=== PATIENT | female | born 1975 | race Caucasian/White ===

== ENCOUNTER → 2017-06-18 17:00 | Outpatient (CLI) | payer BC, SELFPAY ==
--- NOTE | 2017-06-18 17:02 | BI_ITS ---
MAMMOGRAPHY - BILATERAL SCREENING REASON FOR EXAM: Female, 42 years old. Routine annual screening examination. PERTINENT HISTORY: Non-contributory. TECHNIQUE: Digital bilateral breast jyoti (3D mammographic acquisition) in the CC and MLO projections. 2-D mediolateral oblique (MLO) and craniocaudad (CC) views of both breasts were obtained. CAD: Full Field Digital Mammography with Computer Added Detection was performed. COMPARISON: Comparison is made with prior outside examination dated April 01, 2015 and October 04, 2014. FINDINGS: Breast Composition: There are scattered areas of fibroglandular density. There are no dominant masses or suspicious calcifications. No other significant abnormalities are identified. There has been no significant change since the prior study. BI/SCREENING MAMM (CAD), BILAT IMPRESSION: Stable bilateral screening mammogram. Yearly follow-up mammogram recommended. (A) ASSESSMENT CATEGORY: BIRADS Category 1: Negative. A letter regarding these results will be sent to the patient by the facility within 30 days. Approximately 10% of breast cancers are not detected by mammography. A normal mammogram should not delay biopsy of a clinically suspicious abnormality. [id number] Electronically Signed: Andrew Phillips MD at 12:44 EDT Tel [phone], Service support ,
== END ==
PROVIDERS: Family Provider Family Medicine; PCP Family Medicine; Visit Provider Family Medicine
DX: Z12.31 Encounter for screening mammogram for malignant neoplasm of breast (principal)
CPT/HCPCS: 77063; 77067

== ENCOUNTER → 2017-12-07 07:57 | Outpatient (CLI) | payer BC, SELFPAY ==
[2017-12-07 08:20] LABS: Red Blood Cells-Urine 0 SEEN /hpf (0-5)
[2017-12-07 09:23] LABS: Absolute Lymphocyte Count 2.92 X10^3/ul (0.83-4.51); Absolute Neutrophil Count 4.6 X10^3/uL (2.0-7.7); Basophil# 0.02 X10^3/uL; Basophil% 0.2 % (0-1); Eosinophil# 0.25 X10^3/uL; Hemoglobin 13.9 g/dl (12.0-15.0); Lymphocyte # 2.92 X10^3/ul (4.0); Mean Corp Hgb Conc 34.8 g/gl (32-36); Mean Corpuscular Hgb 30.6 pg (27.0-32.0); Mean Corpuscular Volume 88.1 fL (81-99); Mean Platelet Vol. 10.2 fl (6.2-12.0); Monocyte# 0.55 X10^3/uL; Monocyte% 6.6 % (0-10); Neutrophil # 4.58 X10^3/uL (2.7-7.7); Neutrophil % 54.8 % (47-70); Platelet Count 228 K/mm3 (150-450); RBC Distribution Width CV 12.4 % (11.6-14.6); RBC Distribution Width SD 39.6 fl (35.1-43.9); Red Blood Count 4.54 M/mm3 (4.2-5.4); White Blood Count 8.4 K/mm3 (4.4-11.0)
[2017-12-07 09:25] LABS: POSITIVE COUNT NO; POSITIVE DIFFERENTIAL NO; POSITIVE MORPHOLOGY NO
[2017-12-07 09:32] LABS: Color, Urine Yellow (Yellow); Glucose, Dipstick 100 mg/dl (Normal); Ketone-Dipstick 5 mg/dl (Negative); Leukocyte Esterase-Dipstick 100 /ul (Negative); Nitrite-Dipstick Negative (Negative); Occult Blood-Urine 10 /ul (Negative); Protein-Dipstick 15 mg/dl (Negative); Specific Gravity, Urine 1.025 (1.002-1.030); Urine Bilirubin Dipstick Negative (Negative); Urine Clarity Sl. Cloudy (Clear); Urine Urobilinogen Normal (Normal)
[2017-12-07 09:37] LABS: Microalbumin,Random Urine 37.9 mg/L (NO RANGE EST.); Microalbumin:Creatinine Ratio 18.3 mg/g CRE (<30 mg/g CRE)
[2017-12-07 09:45] LABS: AST(SGOT) 8 U/L (15-37); Alanine Aminotransfer ALT/SGPT 26 U/L (13-56); Albumin, Serum 3.4 g/dL (3.2-5.0); Alkaline Phosphatase 72 U/L (45-117); Anion Gap 10 (5-15); BUN 15 mg/dL (7-18); BUN/Creat Ratio 25.2 RATIO (10-20); Calcium,Total 8.2 mg/dL (8.5-10.1); Chloride 108 mmol/L (98-107); Cholesterol 153 mg/dL (200); EST Glomerular Filtration Rate 117 mL/min (>60); Est Glom Filt Rate - Afr Amer 141 mL/min (>60); Globulin 3.3 g/dL (2.2-4.2); Glucose 186 mg/dL (74-106); High Density Lipoprotein 42 mg/dL; Potassium 3.6 mmol/L (3.5-5.1); Protein, Total 6.7 g/dL (6.4-8.2); Sodium Level 141 mmol/L (136-145); T4 Free Direct 0.84 ng/dL (0.76-1.46); Triglycerides 128 mg/dL; Very Low Density Lipoprotein 26 mg/dL (5-40)
[2017-12-07 09:48] LABS: Bacteria RARE /hpf (None Seen); Mucous, Urine 2+ /hpf (<or=2+); Squamous Epithelial Cells - UA 0-5 SEEN /hpf (5-10); White Blood Cells 0-5 SEEN /hpf (0-5)
[2017-12-07 09:53] LABS: Hemoglobin A1c 7.6 % (4.2-6.3)
== END ==
PROVIDERS: Family Provider Family Medicine; PCP Family Medicine; Visit Provider Family Medicine
DX: I10 Essential (primary) hypertension (principal); E03.9 Hypothyroidism, unspecified; E11.9 Type 2 diabetes mellitus without complications
CPT/HCPCS: 36415; 80053; 80061; 81001; 82043; 82570; 83036; 84439; 84443; 85025

== ENCOUNTER → 2017-12-23 10:08 | Outpatient (CLI) | payer BC, SELFPAY ==
--- NOTE | 2017-12-23 10:31 | US_ITS ---
STUDY: THYROID ULTRASOUND REASON FOR EXAM: Female, 42 years old. History of iodine-131 treatment. History of goiter and Graves' disease. Partial thyroidectomy 1998. TECHNIQUE: Ultrasound evaluation of the thyroid was performed with real-time and static swanson-scale imaging. COMPARISON: MRI angiogram neck 05/09/2013. FINDINGS: RIGHT LOBE: 2.6 x 1.1 x 0.9 cm. Generalized heterogeneous echotexture. There is a vascular 9 x 7 x 7 mm hypoechoic heterogeneous nodule with sharply circumscribed margins and oval shape. LEFT LOBE: 5.4 x 2.4 x 2.5 cm. Heterogeneous generalized echotexture. Mid polar nodules are present, solid, smoothly circumscribed margins, hypoechoic, with Perinodular vascular flow. The nodules measure 18 x 17 x 13 mm, 18 x 16 x 12 mm, and 8 x 8 x 5 mm respectfully. ISTHMUS: The isthmus measures 3 mm, normal echotexture . US/Thyroid IMPRESSION: Bilateral thyroid nodules. Based on the [place] [employer] guidelines, the largest nodules on the left fall into the intermediate suspicion pattern. Biopsy is recommended if over 1 cm in greatest dimension. Therefore, ultrasound guided FNA biopsy of the dominant nodules on the left is recommended. This depends upon the patient's prior history. Prior imaging is not available for direct comparison of the gland at this time. If prior imaging becomes available and assessment can be made as to the relative stability of the gland. Electronically Signed: Zach Wright, at 17:13 EDT Tel , Service support ,
[2017-12-25 07:07] LABS: Thyroid Stim Immunoglob <0.10 IU/L (0.00-0.55)
[2017-12-25 07:29] LABS: Thyroid Peroxidase AB 10 IU/mL (0-34)
== END ==
PROVIDERS: Family Provider Family Medicine; PCP Family Medicine; Referring Provider Family Medicine; Visit Provider Family Medicine
DX: E05.00 Thyrotoxicosis with diffuse goiter without thyrotoxic crisis or storm (principal)
CPT/HCPCS: 36415; 76536; 84445; 86376

== ENCOUNTER → 2018-01-13 15:30 | Outpatient (CLI) | payer BC, SELFPAY ==
--- NOTE | 2018-01-13 | ASPS_PTH ---
PATIENT: DEDRICK VÁZQUEZ [facility] U#:[id number] AGE/SX: 49/F ROOM: RE01/13/[address]: Dr. Navin Champagne MD : 1975 BED: DIS: SPEC #: [id number] RECD: 01/14/18 10:54 STATUS: KENA JUDIT #: [id number] MIKEL: 01/13/18 00:[address]: Navin Champagne DEPT: CYTOLOGY RECD BY: Josh Montesinos ENTERED: 01/14/18 10:55 SP TYPE: ASPIRATION OTHR DR: Dr. Jose Rowley MD Tissues: A - Thyroid gland, NOS B - Thyroid gland, NOS Procedures: Pap Stain (control) Special Stain Group II Cytology Other HEADER OPERATION: Left thyroid FNA x2 PRE-OP DIAGNOSIS: Multiple thyroid nodules E04.2 TISSUE SUBMITTED: A - Fine needle aspiration left thyroid inferior lobe (6 slides), B - Fine needle aspiration left thyroid superior lobe (6 slides) DIAGNOSIS CYTOLOGY A. Left thyroid inferior lobe, FNA (smears): Consistent with benign follicular nodule. Adequate for evaluation. B. Left thyroid superior lobe, FNA (smears): Consistent with benign follicular nodule. Adequate for evaluation. SJ:katja 01/15/18 COMMENT Correlation with clinical, radiologic findings and appropriate follow up are necessary. CYTOLOGY STUDY Slides are reviewed. CYTOLOGY GROSS A - Received are six smears labeled with the patient's name and designated per the requisition as fine needle aspiration left thyroid inferior lobe. Submitted for staining. B - Received are six smears labeled with the patient's name and designated per the requisition as fine needle aspiration left thyroid superior lobe. Submitted for staining. 01/14/18 TC:5 CPT: 01340 x2
== END ==
PROVIDERS: Family Provider Family Medicine; PCP Family Medicine; Referring Provider Surgery; Visit Provider Surgery
DX: E04.2 Nontoxic multinodular goiter (principal)
CPT/HCPCS: 88161; 88313

== ENCOUNTER 2018-03-06 16:49 | Outpatient (RCR) | payer BC, SELFPAY | END 2018-03-17 23:59 | LOC: DC 16:49 | PROVIDERS: Family Provider Family Medicine; PCP Family Medicine; Visit Provider Family Medicine | DX: E11.9 Type 2 diabetes mellitus without complications (principal); Z71.3 Dietary counseling and surveillance ==

== ENCOUNTER 2018-05-01 16:58 | Outpatient (RCR) | payer BC, SELFPAY ==
[2018-01-06 10:43] VITALS: BMI 30.8
== END 2018-05-01 23:59 ==
LOC: DC 16:58
PROVIDERS: Family Provider Family Medicine; PCP Family Medicine; Visit Provider Family Medicine
DX: E11.9 Type 2 diabetes mellitus without complications (principal); Z71.3 Dietary counseling and surveillance
CPT/HCPCS: G0108

== ENCOUNTER → 2018-11-15 | Outpatient (CLI) | payer BC, SELFPAY ==
[2018-07-30 17:53] VITALS: BMI 30.8
[2018-11-15 09:42] LABS: Anion Gap 8 (5-15); BUN 13 mg/dL (7-18); BUN/Creat Ratio 19.3 RATIO (10-20); Calcium,Total 8.3 mg/dL (8.5-10.1); Chloride 109 mmol/L (98-107); Creatinine, Serum 0.68 mg/dL (0.55-1.02); EST Glomerular Filtration Rate 101 mL/min (>60); Est Glom Filt Rate - Afr Amer 122 mL/min (>60); Glucose 168 mg/dL (74-106); Potassium 3.5 mmol/L (3.5-5.1); Sodium Level 141 mmol/L (136-145)
[2018-11-15 09:43] LABS: Microalbumin,Random Urine 94.4 mg/L (NO RANGE EST.); Microalbumin:Creatinine Ratio 60.1 mg/g CRE (<30 mg/g CRE)
[2018-11-15 09:50] LABS: Hemoglobin A1c 8.4 % (4.2-6.3)
== END | disposition home or self-care (01) ==
LOC: LAB 08:07
PROVIDERS: Family Provider Internal Medicine; PCP Internal Medicine; Referring Provider Internal Medicine; Visit Provider Internal Medicine
DX: E11.9 Type 2 diabetes mellitus without complications (principal)
CPT/HCPCS: 36415; 80048; 82043; 82570; 83036

== ENCOUNTER 2018-11-22 17:16 | Emergency (ER) | payer BC, SELFPAY ==
[2018-11-20 18:11] VITALS: BMI 30.8
[2018-11-22 17:17] VITALS: BP 190/130; PULSE 108; RESP 18; TEMP 36.7; O2SAT 98; BMI 31.8
[2018-11-22 17:20] VITALS: BP 190/130; PULSE 102
--- NOTE | 2018-11-22 17:23 | RAD_ITS ---
STUDY: X-RAY CHEST REASON FOR EXAM: Female, 43 years old. Chest pain, hypertension TECHNIQUE: AP COMPARISON: 01/12/2016 FINDINGS: The lungs are clear and expanded. There is no demonstrated pleural abnormality. Normal size heart. Normal mediastinum and aminata. Normal visualized pulmonary arteries. Normal visualized aortic arch and descending thoracic aorta. Normal visualized thoracic spine. Normal visualized ribs, clavicles, and shoulders. There is no demonstrated abnormality of the visualized soft tissue structures of the upper abdomen. RAD/Chest 1 View (Portable) IMPRESSION: Stable, nonacute portable x-ray examination of the chest. Electronically Signed: Danny Iverson MD (Brooks) at 17:36 EDT , Service support ,
--- NOTE | 2018-11-22 17:23 | EKG12_ITS ---
Test Reason : CP Blood Pressure : / mmHG Vent. Rate : 108 BPM Atrial Rate : 108 BPM P-R Int : 174 ms QRS Dur : 086 ms QT Int : 360 ms P-R-T Axes : 055 -08 031 degrees QTc Int : 482 ms Sinus tachycardia Cannot rule out Inferior infarct , age undetermined Abnormal ECG Confirmed by KINGSTON BHATTI ([id number]), image editor GUILLERMO JOSEPH ([id number]) on 12/01/2018 2:33:26 PM Referred By: RICHARD Confirmed By:KINGSTON BHATTI
[2018-11-22 17:31] VITALS: O2SAT 97
--- NOTE | 2018-11-22 17:33 | ED.VIS.GEN ---
History of Present Illness Chief Complaint: Chest Pain Informant: Patient Onset: Yesterday Current Severity: Mild Narrative: The patient presents with multiple complaints including cough for over a month since her blood pressures been elevated for many many months, and intermittent sharp chest pain for today. She is had no fever the cough is dry nonproductive, she is had her blood pressure medications altered by her outpatient providers multiple times she is taking one medicine she is not sure what the name of it is, she is eating and drinking well she has no history of NH PE or DVT, she has no history of exertional chest pain NH. She indicates chest pain simply comes and goes and is not associated with exertion she smokes less than half packs a day she does not recall having family history for CAD she is currently resting comfortably no distress her blood pressures noted to be 210/120 and she indicates she has been taking her blood pressure medications Past Medical History - Allergies and Home Meds Allergies/Adverse Reactions: Allergies terbutaline sulfate [From Brethine] Allergy (Verified 11/20/18 18:06) Other HEART RACE metoclopramide HCl [From Reglan] Adverse Reaction (Verified 11/20/18 18:06) Other I DONT SLEEP Primary Care Physician: Kanwal Urena MD [Primary Care Provider] - Past Medical History: - Surgical History: hysterectomy, - - Tubal ligation, left knee surgery. Smoking Status: Light Smoker (<10/day) Review of Systems ROS: - Hypertension General: Denies: Chills, Fever, Sweats Eyes: Denies: Visual changes - bilaterally, Diplopia ENT: Denies: Rhinorrhea, Sore throat Cardiovascular: Reports: Chest pain. Denies: Palpitations Respiratory: Reports: Cough. Denies: Dyspnea, Dyspnea on exertion Gastrointestinal: Denies: Abdominal pain, Nausea, Vomiting, Diarrhea, Melena, Hematochezia Genitourinary: Denies: Dysuria, Hematuria, Frequency Musculoskeletal: Denies: Back pain, Extremity Pain Skin: Denies: Rash, Wounds Neurological: Denies: Headache, Weakness, Numbness Physical Exam Vital Signs/Narrative: Vital Signs Temp Pulse Resp BP Pulse Ox 11/22/18 17:31 97 11/22/18 17:20 102 H 190/130 H 11/22/18 17:17 98.1 F 108 H 18 190/130 H 98 General: Well nourished, Well developed, No Acute Distress Head: Normocephalic, Atraumatic Eyes: Perrl, EOMI ENT: Moist mucous membranes, No rhinorrhea Neck: Supple, Nontender Cardiovascular: Regular rate, Regular rhythm, No murmurs Respiratory: No distress, CTA bilaterally, Chest nontender Abdomen: Soft, Nontender, Nondistended, Normal bowel sounds Back: Nontender, Normal Inspection Extremities: Nontender, No edema Skin: Normal color, No rash Neurological: Alert, Oriented x3, Cranial nerves II-XII grossly intact, Normal Strength, Normal Sensation Psychological: Normal affect, Normal Mood Diagnostic/Tx/Re-eval - Medical Decision Making The differential is rather extensive the patient's EKG shows a sinus rhythm nothing acute rate 100 intervals unremarkable, on reevaluation she is in no distress we are going to treat with clonidine 0.3 mg p.o. obtain screening labs she indicates she is never had angina and NH or PE she cannot explain why her blood pressure remains high despite having her medications altered and modified by her outpatient providers nothing has been different in her life recently screening labs will reevaluate Patient screening labs are all generally unremarkable as is her chest x-ray see those reports, and reevaluation she is resting company the bed her blood pressure is now 150 over about 80 we discussed inpatient versus outpatient management she indicates she does not wish to be admitted she wants to go home she understands take aspirin at least 2 baby aspirin every day follow-up with your outpatient providers for further management of the chest pain and her hypertension and return for change in symptoms Home stable plan to admission Impression Final Intermittent sharp chest pain resolved labile hypertension ED Disposition - Plan for ED Patient: Diagnosis: Hypertension, Chest pain Instructions: CHEST PAIN, Uncertain Cause Referrals: Kanwal Urena MD [Primary Care Provider] -
[2018-11-22 17:34] LABS: Absolute Lymphocyte Count 3.59 X10^3/uL (0.83-4.51); Absolute Neutrophil Count 6.8 X10^3/uL (2.0-7.7); Basophil# 0.03 X10^3/uL; Basophil% 0.3 % (0-1); Eosinophil# 0.26 X10^3/uL; Eosinophils% 2.2 % (0-5); Hematocrit 44.9 % (37-47); Hemoglobin 16.1 g/dL (12.0-15.0); Lymphocyte # 3.59 X10^3/ul (4.0); Lymphocyte % 31.1 % (19-41); Mean Corp Hgb Conc 35.9 g/dL (32-36); Mean Corpuscular Hgb 31.2 pg (27.0-32.0); Mean Platelet Vol. 9.9 fl (6.2-12.0); Monocyte# 0.83 X10^3/uL; Monocyte% 7.2 % (0-10); NRBC Flagged by Analyzer 0 % (0-5); Neutrophil % 58.8 % (47-70); Platelet Count 269 K/mm3 (150-450); RBC Distribution Width CV 11.7 % (11.6-14.6); RBC Distribution Width SD 37.5 fl (35.1-43.9); Red Blood Count 5.16 M/mm3 (4.2-5.4); White Blood Count 11.6 K/mm3 (4.4-11.0)
[2018-11-22] MEDS: Clonidine HCl 0.1 MG, Clonidine HCl 0.2 MG 0.3 MG PO (17:45)
[2018-11-22 17:48] LABS: International Normalized Ratio 0.9
[2018-11-22 17:50] LABS: Anion Gap 11 (5-15); BUN 15 mg/dL (7-18); BUN/Creat Ratio 17.1 RATIO (10-20); Calcium,Total 8.8 mg/dL (8.5-10.1); Chloride 107 mmol/L (98-107); Creatinine, Serum 0.88 mg/dL (0.55-1.02); EST Glomerular Filtration Rate 75 mL/min (>60); Est Glom Filt Rate - Afr Amer 90 mL/min (>60); Estimated Creatinine Clearance 73.41 ml/min; Glucose 299 mg/dL (74-106); Potassium 3.9 mmol/L (3.5-5.1); Sodium Level 140 mmol/L (136-145)
[2018-11-22 17:55] VITALS: BP 151/104; PULSE 102; RESP 18; O2SAT 94
[2018-11-22] MEDS: Acetaminophen 500 MG Tablet 1000 MG PO (17:55)
[2018-11-22] MEDS: Aspirin 325 MG Tablet PO (18:18)
[2018-11-22 18:19] VITALS: BP 154/100; PULSE 88; RESP 18; O2SAT 98
== END 2018-11-22 18:22 | disposition home or self-care (01) ==
LOC: ED 18:08
PROVIDERS: Emergency Provider Emergency Medicine; Family Provider Internal Medicine; PCP Internal Medicine
DX: R07.9 Chest pain, unspecified (principal); I10 Essential (primary) hypertension; R05 Cough; Z79.899 Other long term (current) drug therapy; F17.200 Nicotine dependence, unspecified, uncomplicated
CPT/HCPCS: 71045; 80048; 84484; 85025; 85610; 93005; 99284; A4216

== ENCOUNTER → 2019-01-02 07:24 | Outpatient (CLI) | payer BC, SELFPAY ==
[2018-07-30 17:53] VITALS: BMI 30.8
[2018-12-18 17:52] VITALS: BMI 31.8
--- NOTE | 2019-01-01 17:15 | BI_ITS ---
MAMMOGRAPHY - BILATERAL SCREENING REASON FOR EXAM: Female, 43 years old. Routine annual screening examination. PERTINENT HISTORY: Non-contributory. TECHNIQUE: Digital bilateral breast valeria (3D mammographic acquisition) in the CC and MLO projections. 2-D mediolateral oblique (MLO) and craniocaudad (CC) views of both breasts were obtained. CAD: Full Field Digital Mammography with Computer Added Detection was performed. COMPARISON: Comparison is made with prior study dated June 18, 2017. FINDINGS: Breast Composition: There are scattered areas of fibroglandular density. There are no dominant masses or suspicious calcifications. No other significant abnormalities are identified. There has been no significant change since the prior study. BI/SCREEN MAMM (CAD) W/VALERIA BILAT IMPRESSION: Stable bilateral screening mammogram. Yearly follow-up mammogram recommended. (A) ASSESSMENT CATEGORY: BIRADS Category 1: Negative. A letter regarding these results will be sent to the patient by the facility within 30 days. Approximately 10% of breast cancers are not detected by mammography. A normal mammogram should not delay biopsy of a clinically suspicious abnormality. [id number] Electronically Signed: Andrew Phillips, at 8:38 EDT , Service support ,
== END ==
PROVIDERS: Family Provider Internal Medicine; PCP Internal Medicine; Referring Provider Internal Medicine; Visit Provider Internal Medicine
DX: Z12.31 Encounter for screening mammogram for malignant neoplasm of breast (principal)
CPT/HCPCS: 77063; 77067

== ENCOUNTER 2019-03-01 12:11 | Emergency (ER) | payer BC, SELFPAY ==
[2019-01-14 17:52] VITALS: BMI 31.6
[2019-03-01 12:12] VITALS: BP 187/124; PULSE 74; RESP 15; TEMP 36.4; O2SAT 100; BMI 31.6
--- NOTE | 2019-03-01 12:32 | ED.DCSUM_ITS ---
History of Present Illness Chief Complaint: Constipation Informant: Patient - Abdominal Pain/Flank Pain Onset: Days - 5 Context: Gradual Onset Timing: Continuous Quality: Cramping, Sharp - x 2-3d Location: Diffuse - periumbilical Current Severity: Severe Maximum Severity: Severe Worsened by: Nothing Relieved by: Nothing - tried Miralax x 2 yesterday; no effect - Nausea/Vomiting/Emesis GI Symptom: Nausea. Negative for: Vomiting - Diarrhea/Melena/Hematochezia GI Symptom: Negative for: Melena, Hematochezia Associated Symptoms: Frequency. Negative for: Dysuria, Hematuria, Urgency Narrative: Started having issues with constipation, followed by abdominal discomfort and nausea. She feels like there is a hard ball of stool in her rectum that she ca nnot get out. She has had this before, she states she has irritable bowel syndrome that flip-flops between constipation and diarrhea, and has had a history of diverticulitis with 2 feet of colectomy as a result of diverticulitis, and states she is also developed diverticulitis after the surgery. She does not have a stoma of any type. States this feels more like constipation but the discomfort in her rectum and her abdomen are getting more severe and she cannot have bowel movements that she came to the ER. She is a diabetic. She last checked her blood sugars yesterday and they were over 300. She has been drinking fluids fairly well and urinating normally and actually more than usual. Prior similar symptoms: Yes - but not this bad - Past Medical History (1) Diverticulosis Status: Chronic (2) Chronic pain syndrome Status: Chronic (3) Fibromyalgia Status: Chronic (4) Hypertension Status: Chronic (5) Rheumatoid arthritis Status: Chronic (6) Type II diabetes mellitus Status: Chronic Past Medical History - Allergies and Home Meds Allergies/Adverse Reactions: Allergies terbutaline sulfate [From Brethine] Allergy (Verified 03/01/19 12:25) Other HEART RACE metoclopramide HCl [From Reglan] Adverse Reaction (Verified 03/01/19 12:25) Other I DONT SLEEP Primary Care Physician: Kanwal Urena MD [Primary Care Provider] - Surgical History: hysterectomy, - - Tubal ligation, left knee surgery. Lives: Spouse/ Significant Other Smoking Status: Light Smoker (<10/day) Review of Systems General: Denies: Chills, Fever, Malaise, Sweats Eyes: Denies: Visual changes - bilaterally, Diplopia ENT: Denies: Rhinorrhea, Sore throat Cardiovascular: Denies: Chest pain, Palpitations Respiratory: Denies: Dyspnea, Cough, Dyspnea on exertion Gastrointestinal: Reports: Abdominal pain, Nausea, Constipation. Denies: Vomiting, Diarrhea, Melena, Hematochezia Genitourinary: Reports: Frequency. Denies: Dysuria, Hematuria Musculoskeletal: Denies: Neck pain, Back pain, Swelling, Extremity Pain Skin: Denies: Rash, Wounds Neurological: Denies: Headache, Weakness, Numbness Physical Exam Vital Signs/Narrative: Vital Signs Temp Pulse Resp BP Pulse Ox 03/01/19 12:12 97.6 F L 74 15 187/124 H 100 Inital Vital Signs reviewed: Yes General: Well nourished, Well developed, No Acute Distress Head: Normocephalic, Atraumatic Eyes: Perrl, EOMI ENT: Moist mucous membranes, No rhinorrhea Neck: Supple, Nontender Cardiovascular: Regular rate, Regular rhythm, No murmurs Respiratory: No distress, CTA bilaterally, Chest nontender Abdomen: Soft, Nondistended, Normal bowel sounds, Tender - diffusely, worse throughout lower abd. Negative for: Guarding, Rebound tenderness Rectal: Tenderness - Uncomfortable, no focal mass, abscess, palpable or visible hemorrhoid. No gross blood. Stool barely palpable at fingertip. Back: Nontender, Normal Inspection. Negative for: CVA tenderness Extremities: Nontender, No edema Skin: Normal color, No rash, No Trauma Neurological: Alert, Oriented x3, Cranial nerves II-XII grossly intact, Normal Strength, Normal Sensation, Normal Gait Psychological: Normal affect, Normal Mood Diagnostic/Tx/Re-eval - Medical Decision Making See above for the rectal exam; manual disimpaction was not possible since I could barely feel the edge of hard stool after fully inserting my finger. Patient was amenable to a soapsuds enema. This really helped her have a bowel movement although she had a small amount, her abdominal discomfort let up and she felt much better. She states she would rather go home and be in her own bathroom which is understandable. We discussed the likelihood of her pain and nausea being related to constipation rather than diverticulitis or bowel obstruction, and she agrees this feels more related to constipation. She understands that if she continues to have bowel movements but her symptoms worsen that she should return to the ER for further studies and evaluation. We discussed using MiraLAX daily, and the difference between using MiraLAX for stool softening versus laxative effect. ED Disposition - Plan for ED Patient: Disposition: Home or Assisted Living Diagnosis: Constipation Instructions: CONSTIPATION (Adult) Referrals: Kanwal Urena MD [Primary Care Provider] - As Needed Additional Instructions: Miralax daily, 1 capful dissolved in any liquid, and make sure you are able to stay well hydrated throughout the day (discontinue it if you have vomiting for any reason).
[2019-03-01] MEDS: Ondansetron ODT 4 MG Tablet 8 MG PO (12:37)
[2019-03-01] MEDS: Dicyclomine 10 MG Capsule 20 MG PO (12:38)
== END 2019-03-01 13:31 | disposition home or self-care (01) ==
PROVIDERS: Emergency Provider Emergency Medicine; Family Provider Internal Medicine; PCP Internal Medicine
DX: K59.00 Constipation, unspecified (principal); K58.9 Irritable bowel syndrome, unspecified; K57.90 Diverticulosis of intestine, part unspecified, without perforation or abscess without bleeding; G89.4 Chronic pain syndrome; M79.7 Fibromyalgia; I10 Essential (primary) hypertension; M06.9 Rheumatoid arthritis, unspecified; E11.9 Type 2 diabetes mellitus without complications; Z87.19 Personal history of other diseases of the digestive system; Z90.49 Acquired absence of other specified parts of digestive tract; Z79.84 Long term (current) use of oral hypoglycemic drugs; Z79.899 Other long term (current) drug therapy; F17.200 Nicotine dependence, unspecified, uncomplicated
CPT/HCPCS: 99284

== ENCOUNTER → 2019-03-12 06:22 | Outpatient (CLI) | payer BC, SELFPAY ==
[2019-01-14 17:52] VITALS: BMI 31.6
[2019-03-01 12:12] VITALS: BMI 31.6
[2019-03-12 06:54] LABS: Color, Urine Yellow (Yellow); Glucose, Dipstick 250 mg/dl (Normal); Ketone-Dipstick 5 mg/dl (Negative); Leukocyte Esterase-Dipstick 25 /ul (Negative); Nitrite-Dipstick Negative (Negative); Occult Blood-Urine 10 /ul (Negative); Protein-Dipstick 30 mg/dl (Negative); Urine Bilirubin Dipstick 1 mg/dL (Negative); Urine Clarity Turbid (Clear); Urine Urobilinogen 1 mg/dl (Normal)
[2019-03-12 06:55] LABS: Bacteria 3+ /hpf (None Seen); Mucous, Urine 2+ /hpf (<or=2+); White Blood Cells 0-5 SEEN /hpf (0-5)
[2019-03-12 06:56] LABS: Amorphous Sediment 2+; Red Blood Cells-Urine 0-5 SEEN /hpf (0-5); Squamous Epithelial Cells - UA 10-25 SEEN /hpf (5-10)
[2019-03-12 07:08] LABS: T4 Free Direct 0.87 ng/dL (0.76-1.46); Thyroid Stim Hormone (TSH) 3.26 uIU/mL (0.358-3.74)
--- NOTE | 2019-03-12 18:58 | STRESSREP_ITS ---
Stress Test Report Date: 03/12/2019 Procedure: Pharmacologic stress nuclear imaging study Indications: Abnormal EKG Consent: Per the patient Procedure: The patient underwent pharmacologic (Regadenoson) evaluation with a peak heart rate of 111 beats per minute (63 %predicted maximal heart rate) and a peak blood pressure of 180/90 mmHg. The baseline ECG demonstrated sinus bradycardia. EKG during lexiscan infusion revealed significant ischemic changes. EKG post infusion revealed no significant ischemic change [There were no cardiac dysrhythmias pretest, during pharmacologic infusion, or recovery]. Patient had chest pressure with Lexiscan infusion and in the recovery. The examination was discontinued secondary to completion of protocol. Impression: 1. Lexiscan stress test test is negative for Lexiscan infusion induced EKG changes of ischemia. 2. Lexiscan stress test test is positive for Lexiscan infusion induced chest pressure which could be a nonspecific response. 3. Results of the nuclear portion of the test is as below Myocardial perfusion imaging study: Technique: The patient was injected with 14.1 millicuries of technetium 99m Cardiolite and subsequently rest SPECT Cardiolite nuclear imaging was obtained in the horizontal long, vertical long, and short axis views. The patient underwent pharmacologic (Regadenoson) evaluation. Please see above for details. The patient was injected with 43 millicuries of technetium 99m Cardiolite and subsequently stress SPECT Cardiolite nuclear imaging was obtained in the horizontal long, vertical long, and short axis views. A gated Cardiolite study at peak stress was obtained. Interpretation: Rest and stress SPECT Cardiolite nuclear imaging status post realignment, normalization, and attenuation correction demonstrate mild decrease in the radioisotope uptake in the distal anterior wall on the stress images. There is normal uptake on the rest images. These findings are suggestive of mild anterior and apical ischemia. Gated images reveal no significant regional wall motion abnormalities. The reported LVEF is greater than 70 %. Impression: 1. There is possible mild anterior and apical ischemia. 2. Estimated ejection fraction is greater than 70%. This note was generated with [employer] software. It may contain incorrect words, spelling, and punctuation that were not noted in checking the note before signing.
[2019-03-20 13:13] LABS: Aldosterone, Serum 21.4 ng/dL (0.0-30.0); Renin, Plasma 0.581 ng/mL/hr (0.167-5.380)
== END ==
PROVIDERS: Family Provider Internal Medicine; PCP Internal Medicine; Referring Provider Internal Medicine; Visit Provider Internal Medicine
DX: I10 Essential (primary) hypertension (principal); R94.31 Abnormal electrocardiogram [ECG] [EKG]; R30.0 Dysuria
CPT/HCPCS: 36415; 78452; 81001; 82088; 84244; 84439; 84443; 87086; 87088; 93017; A9500; A4216; J2785

== ENCOUNTER → 2019-04-03 15:03 | Outpatient (CLI) | payer BC, SELFPAY ==
[2019-03-25 14:29] VITALS: BMI 31.4
--- NOTE | 2019-04-03 15:06 | ECHOD_ITS ---
Reason For Study: Chest Pain Procedure This was a 2D Doppler, Color Flow transthoracic echocardiogram. Contrast injection was performed. Exam performed in department. Left Ventricle Normal left ventricle. Left ventricular systolic function is hyperdynamic. The estimated ejection fraction is 60-65 %. Stage 1 diastolic dysfunction. No regional wall motion abnormalities noted. Right Ventricle Normal right ventricle. Normal systolic function. Atria Normal left atrium. Mitral Valve The mitral valve is structurally normal. No prolapse or stenosis seen. No mitral valve insufficiency. Tricuspid Valve Normal tricuspid valve. Unable to estimate RV systolic pressure due to inadequate jet, pulmonary artery pressure probably normal. Aortic Valve No aortic valve insufficiency. Pulmonic Valve The pulmonic valve is not well visualized. Medication 22 gauge I.V. with prn adaptor inserted into right arm. Performed a rapid injection of agitated mix of 9 cc saline and 1cc air to assess for atrial septal defect. MMode/2D Measurements & Calculations LVIDd: 4.4 cm IVSd: 1.1 cm Ao root diam: 3.2 cm LVIDs: 2.7 cm LVPWd: 0.92 cm LA dimension: 4.2 cm RVDd: 3.7 cm FS: 38.3 % LAV(MOD-bp): 55.7 ml LA A4 area: 18.4 cm2 RA A4 area: 15.1 cm2 LAV(MOD-bp) Indexed: 28.8 ml/m2 LAV(MOD-sp2): 48.7 ml LAV(MOD-sp4): 58.3 ml Time Measurements MV dec time: 0.22 sec Doppler Measurements & Calculations MV E max gilmer: 100.3 cm/sec Lat Peak E' Gilmer: 8.5 cm/sec Med Peak E' Gilmer: 9.2 cm/sec MV A max gilmer: 108.9 cm/sec E/E' lat: 11.9 E/E' med: 10.9 MV E/A: 0.92 MV V2 max: 134.8 cm/sec MV P1/2t max gilmer: 118.5 cm/sec Ao V2 max: 152.2 cm/sec MV max P.3 mmHg MV P1/2t: 88.9 msec Ao max P.3 mmHg MV V2 mean: 77.7 cm/sec MV mean P.8 mmHg MV dec slope: 390.2 cm/sec2 MV V2 VTI: 38.0 cm MVA(P1/2t): 2.5 cm2 LV V1 max: 132.4 cm/sec PA V2 max: 114.6 cm/sec LV V1 max P.0 mmHg Interpretation Summary Normal left ventricle. Left ventricular systolic function is hyperdynamic. The estimated ejection fraction is 60-65 %. Normal left atrium. Stage 1 diastolic dysfunction. Unable to estimate RV systolic pressure due to inadequate jet, pulmonary artery pressure probably normal. No mitral valve insufficiency. No aortic valve insufficiency. Ordering Physician: Radha Ordoñez Referring Physician: Radha Ordoñez Performed By: Lucian Bailon RCS
== END ==
PROVIDERS: Family Provider Internal Medicine; PCP Internal Medicine; Referring Provider Specialist; Visit Provider Specialist
DX: R07.9 Chest pain, unspecified (principal)
CPT/HCPCS: 93306; A4216

== ENCOUNTER 2019-04-10 09:52 | Day surgery (SDC) | payer BC, SELFPAY ==
[2019-03-25 14:29] VITALS: BMI 31.4
[2019-03-25 17:16] LABS: Absolute Lymphocyte Count 3.29 X10^3/uL (0.83-4.51); Absolute Neutrophil Count 5.3 X10^3/uL (2.0-7.7); Basophil# 0.05 X10^3/uL; Basophil% 0.5 % (0-1); Eosinophil# 0.65 X10^3/uL; Eosinophils% 6.3 % (0-5); Hematocrit 42.3 % (37-47); Hemoglobin 14.7 g/dL (12.0-15.0); Lymphocyte # 3.29 X10^3/ul (4.0); Lymphocyte % 31.9 % (19-41); Mean Corp Hgb Conc 34.8 g/dL (32-36); Mean Corpuscular Hgb 30.6 pg (27.0-32.0); Mean Corpuscular Volume 88.1 fL (81-99); Mean Platelet Vol. 10.3 fl (6.2-12.0); Monocyte# 0.94 X10^3/uL; Monocyte% 9.1 % (0-10); NRBC Flagged by Analyzer 0 % (0-5); Neutrophil % 51.5 % (47-70); Platelet Count 345 K/mm3 (150-450); RBC Distribution Width CV 11.9 % (11.6-14.6); RBC Distribution Width SD 38.3 fl (35.1-43.9); White Blood Count 10.3 K/mm3 (4.4-11.0)
[2019-03-25 17:23] LABS: Anion Gap 7 (5-15); BUN 16 mg/dL (7-18); BUN/Creat Ratio 19.9 RATIO (10-20); Calcium,Total 9.3 mg/dL (8.5-10.1); Chloride 104 mmol/L (98-107); EST Glomerular Filtration Rate 82 mL/min (>60); Est Glom Filt Rate - Afr Amer 99 mL/min (>60); Glucose 224 mg/dL (74-106); Potassium 3.6 mmol/L (3.5-5.1); Sodium Level 137 mmol/L (136-145)
[2019-03-25 17:25] LABS: International Normalized Ratio 0.9; Partial Thromboplast Time 26.8 Seconds (24.1-36.2); Prothrombin Time (Protime)PT. 11.5 SECONDS (11.7-14.9)
[2019-04-09 07:01] VITALS: BMI 31.4
--- NOTE | 2019-04-10 16:43 | CL.D_ITS ---
Patient Name: DEDRICK VÁZQUEZ Study Date: 04/10/2019 Performing: Eliseo Ordoñez MD Ht: 65 inches 165 cm : 1975 Wt: 189.8 lbs 86 kg Age: 44 Gender: female BSA: 1.93 PROCEDURE(S) PERFORMED EX03-EXI/COR/LV CLINICAL PROFILE AND INDICATIONS Indications: Suspected CAD Heart Failure: None Stress/Imaging Stress Test w/SPECT MPI: Yes Result: Positive Intermediate RiskStress Test with SP ECT MPI: Positive Intermediate Risk CAD Presentations: Unstable angina. CONCLUSIONS No significant CAD. Preserved EF. No significant or MR RECOMMENDATIONS DESCRIPTION OF PROCEDURE The patient arrived to the procedure lab. The risks and benefits of the procedure as well as a full d escription of our services here and current unavailability of surgical backup were fully explained to the patient and/or their significant other prior to the catheterization. The Timeout was completed, verifying the correct patient and procedure. The patient's procedural site was prepped and draped in the usual fashion. Local anesthetic was given subcutaneously to right radial region with Lidocaine 2% . Using a modified Seldinger technique, arterial access was obtained via the right radial artery, a 6 Fr sheath was inserted. Left Coronary Artery selective angiography was performed in multiple views u sing a 5 Fr. JL3.5 catheter. Left Ventriculography was performed in S[place]IN projection using a 5 Fr. JR4. Right Coronary Artery selective angiography was then performed in multiple views using a 5 Fr. JR 4 catheter.The arterial sheath was pulled and a TR Band was applied for hemostasis - 11cc of air CORONARY ANGIOGRAPHY DOMINANCE: Right Dominant LEFT HEART ASSESSMENT Left Ventricular Ejection Fraction: by LV Gram 65 % Normal LV wall motion LEFT MAIN: Angiographically normal LEFT ANTERIOR DESCENDING ARTERY: Mild luminal irregularities CIRCUMFLEX ARTERY: Angiographically normal RIGHT CORONARY ARTERY: Angiographically normal VALVE FINDINGS: No Aortic Valve Stenosis No Mitral Insufficiency COMPLICATIONS No Complications PROCEDURE MEDICATIONS Fentanyl 50 mcg IV Versed 1 mg IV Oxygen: 2 L/min via nasal cannula Heparin given IA 04/10/2019 12:34:17 Verapamil 2.5mg, Ntg 100mcgs, 3000 units of Heparin given IA 04/10/2019 12:34:17 SUMMARY OF HEMODYNAMIC DATA Time AIR REST ECG 12:35:44 AO 115/86 (99) SA 12:36:11 LV 150/-11, 7 12:40:23 LV 148/-10, 7 12:40:30 LV 141/-10, 6 12:41:19 LVp 140/-7, 10 12:41:29 AOp 136/84 (105) 12:41:34 Signed By Eliseo Ordoñez MD On 04/10/2019 4:42:37 PM Eliseo Ordoñez MD
== END 2019-04-10 15:10 | disposition home or self-care (01) ==
PROVIDERS: Family Provider Internal Medicine; PCP Internal Medicine; Referring Provider Specialist; Visit Provider Specialist
DX: R94.39 Abnormal result of other cardiovascular function study (principal); R07.9 Chest pain, unspecified; I10 Essential (primary) hypertension; M79.7 Fibromyalgia; G47.30 Sleep apnea, unspecified; G89.4 Chronic pain syndrome; M19.90 Unspecified osteoarthritis, unspecified site; K57.90 Diverticulosis of intestine, part unspecified, without perforation or abscess without bleeding; K21.9 Gastro-esophageal reflux disease without esophagitis; K58.9 Irritable bowel syndrome, unspecified; M06.9 Rheumatoid arthritis, unspecified; L40.50 Arthropathic psoriasis, unspecified; E11.9 Type 2 diabetes mellitus without complications; Z87.01 Personal history of pneumonia (recurrent); Z87.442 Personal history of urinary calculi; Z79.84 Long term (current) use of oral hypoglycemic drugs; Z79.899 Other long term (current) drug therapy; Z87.891 Personal history of nicotine dependence
CPT/HCPCS: 36415; 80048; 85025; 85610; 85730; 93458; 99152; 99153; J7040; C1769; C1894; Q9967

== ENCOUNTER → 2019-10-03 08:17 | Outpatient (CLI) | payer BC, SELFPAY ==
[2019-07-29 18:15] VITALS: BMI 31.4
[2019-10-03 09:07] LABS: Hemoglobin A1c 9.5 % (3.8-5.6)
== END ==
PROVIDERS: PCP Internal Medicine; Referring Provider Internal Medicine; Visit Provider Internal Medicine
DX: E11.9 Type 2 diabetes mellitus without complications (principal)
CPT/HCPCS: 36415; 83036

== ENCOUNTER → 2019-12-14 | Outpatient (CLI) | payer BC, SELFPAY ==
[2019-12-14 16:18] VITALS: BMI 31.2
[2019-12-18 04:41] LABS: HPV APTIMA, High Risk Negative (Negative)
== END | disposition home or self-care (01) ==
LOC: LABSPEC 16:53
PROVIDERS: PCP Internal Medicine; Referring Provider Obstetrics & Gynecology; Visit Provider Obstetrics & Gynecology
DX: N89.8 Other specified noninflammatory disorders of vagina (principal); Z12.4 Encounter for screening for malignant neoplasm of cervix
CPT/HCPCS: 87070; 87205; 87624; 88175; G0145

== ENCOUNTER → 2019-12-21 13:16 | Outpatient (CLI) | payer BC, SELFPAY ==
[2019-10-07 18:16] VITALS: BMI 31.2
[2019-12-14 16:18] VITALS: BMI 31.2
--- NOTE | 2019-12-21 13:16 | BI_ITS ---
MAMMOGRAPHY - BILATERAL DIAGNOSTIC REASON FOR EXAM: Female, 44 years old. BILAT SEBACEOUS CYST FOR YEARS THAT HAVE BECOME PAINFUL-MARKED WITH TRIANGLE MARKERS, BIOL SCAR LT , LT TATTOO PERTINENT HISTORY: NO FM HX , BIOL SCAR LT , LT TATTOO TECHNIQUE: Digital bilateral breast jyoti (3D mammographic acquisition) in the CC and MLO projections. 2-D mediolateral oblique (MLO) and craniocaudad (CC) views of both breasts were obtained. CAD: Full Field Digital Mammography with Computer Added Detection was performed. COMPARISON: 01/01/2019 and 10/18/2017 FINDINGS: Breast Composition: The breasts are almost entirely fatty. There are no dominant masses or suspicious calcifications. No other significant abnormalities are identified. BI/DIAG MAMM W/CAD, BILAT IMPRESSION: Further ultrasonographic evaluation recommended, as described above. (I) ASSESSMENT CATEGORY: BIRADS Category 0: Incomplete. Need additional imaging evaluation. A letter regarding these results will be sent to the patient by the facility within 30 days. Approximately 10% of breast cancers are not detected by mammography. A normal mammogram should not delay biopsy of a clinically suspicious abnormality. Electronically Signed: Hermes Alvarez, at 15:43 EDT Tel , Service support ,
--- NOTE | 2019-12-21 13:16 | US_ITS ---
STUDY: ULTRASOUND BREAST - RIGHT REASON FOR EXAM: Female, 44 years old. palpable rt breast x 2mammo today TECHNIQUE: Axial and longitudinal images of the RIGHT breast were performed with a high resolution ultrasound transducer. # OF IMAGES: 33 COMPARISON: None. FINDINGS: RIGHT Breast: There is a lesion #1 in the lower inner quadrant. It is consistent with sebaceous cyst. The lesion measures 7 x 5 x 2 mm in size. Clock notation: 4 o''clock position. Distance from nipple: 1 cm. Posterior Enhancement: Yes. Posterior Shadowing: None. Margins: Sharp and smooth. Echogenicity: Hypoechoic. Compression effect on Shape: No change. There is a lesion #2 in the lower inner quadrant. It is consistent with sebaceous cyst. The lesion measures 6 x 7 x 2 mm in size. Clock notation: 6 o''clock position. Distance from nipple: 1 cm. Posterior Enhancement: Yes. Posterior Shadowing: None. Margins: Sharp and smooth. Echogenicity: Hypoechoic. Compression effect on Shape: No change. US/Breast Limited Unilateral IMPRESSION: 2 lesions are noted within the dermis are consistent with sebaceous cysts. ASSESSMENT CATEGORY: BIRADS Category 2: Benign. A letter regarding these results will be sent to the patient by the facility within 30 days. Electronically Signed: Hermes Alvarez, at 14:46 EDT Tel , Service support ,
== END ==
PROVIDERS: PCP Internal Medicine; Referring Provider Obstetrics & Gynecology; Visit Provider Obstetrics & Gynecology
DX: N60.01 Solitary cyst of right breast (principal)
CPT/HCPCS: 76642; 77062; 77066; G0279

== ENCOUNTER → 2020-01-16 08:09 | Outpatient (CLI) | payer BC, SELFPAY ==
[2020-01-16 08:42] LABS: Absolute Lymphocyte Count 2.98 X10^3/uL (0.83-4.51); Basophil# 0.04 X10^3/uL; Basophil% 0.4 % (0-1); Eosinophils% 3.4 % (0-5); Hematocrit 41.2 % (37-47); Hemoglobin 14.2 g/dL (12.0-15.0); Lymphocyte # 2.98 X10^3/ul (4.0); Lymphocyte % 33.3 % (19-41); Mean Corp Hgb Conc 34.5 g/dL (32-36); Mean Corpuscular Hgb 30.6 pg (27.0-32.0); Mean Corpuscular Volume 88.8 fL (81-99); Mean Platelet Vol. 10.1 fl (6.2-12.0); Monocyte# 0.57 X10^3/uL; Monocyte% 6.4 % (0-10); NRBC Flagged by Analyzer 0 % (0-5); Neutrophil # 5.02 X10^3/uL (2.7-7.7); Neutrophil % 56.1 % (47-70); Platelet Count 272 K/mm3 (150-450); RBC Distribution Width CV 11.6 % (11.6-14.6); RBC Distribution Width SD 36.9 fl (35.1-43.9); Red Blood Count 4.64 M/mm3 (4.2-5.4)
[2020-01-16 09:12] LABS: ALB/GLOB Ratio 1.1 RATIO (0.9-2.4); AST(SGOT) 8 U/L (15-37); Alanine Aminotransfer ALT/SGPT 23 U/L (13-56); Albumin, Serum 3.4 g/dL (3.2-5.0); Alkaline Phosphatase 71 U/L (45-117); Anion Gap 8 (5-15); BUN 14 mg/dL (7-18); BUN/Creat Ratio 19.9 RATIO (10-20); Chloride 108 mmol/L (98-107); Cholesterol 174 mg/dL (200); EST Glomerular Filtration Rate 96 mL/min (>60); Est Glom Filt Rate - Afr Amer 116 mL/min (>60); Globulin 3.2 g/dL (2.2-4.2); Glucose 191 mg/dL (74-106); High Density Lipoprotein 59 mg/dL; Potassium 3.7 mmol/L (3.5-5.1); Protein, Total 6.6 g/dL (6.4-8.2); Sodium Level 138 mmol/L (136-145); Triglycerides 110 mg/dL; Very Low Density Lipoprotein 22 mg/dL (5-40)
[2020-01-16 09:15] LABS: Microalbumin,Random Urine 40.8 mg/L (NO RANGE EST.); Microalbumin:Creatinine Ratio 20.5 mg/g CRE (<30 mg/g CRE)
[2020-01-16 09:20] LABS: Hemoglobin A1c 8.3 % (3.8-5.6)
== END ==
PROVIDERS: PCP Internal Medicine; Referring Provider Nurse Practitioner Family; Visit Provider Nurse Practitioner Family
DX: I10 Essential (primary) hypertension (principal); E11.9 Type 2 diabetes mellitus without complications
CPT/HCPCS: 36415; 80053; 80061; 82043; 82570; 83036; 85025

== ENCOUNTER 2020-09-22 17:56 | Emergency (ER) | payer BC, SELFPAY ==
[2020-09-07 18:21] VITALS: BMI 30.1
[2020-09-22 17:57] VITALS: BP 158/79; PULSE 86; RESP 15; TEMP 36; O2SAT 97; BMI 29.1
--- NOTE | 2020-09-22 18:07 | RAD_ITS ---
STUDY: X-RAY - PELVIS REASON FOR EXAM: Female, 45 years old. Fall TODAY. PAIN AND BRUISING TO LOWER BACK. TECHNIQUE: One view of the pelvis was obtained. COMPARISON: Lumbar spine x-ray dated February 13, 2016 FINDINGS: There is a non-specific bowel gas pattern. Normal visualized soft tissue structures. Stable right sacral stimulating catheter and adjacent subcutaneous stimulator device. No visualized acute fractures. Surgical suture material is present in the pelvis. Normal bilateral iliac wings, sacroiliac joints and visualized sacrum. Normal visualized bilateral superior and inferior pubic rami. There is narrowing with sclerosis of the pubic symphysis. Normal ischial tuberosities. Normal visualized right femoral head. Normal right acetabulum. Normal right hip joint. Normal visualized left femoral head. Normal left acetabulum. Normal left hip joint. RAD/Pelvis 1 or 2 Views IMPRESSION: No acute process Electronically Signed: Randy Yang MD at 20:02 EDT , Service support ,
--- NOTE | 2020-09-22 18:07 | RAD_ITS ---
STUDY: X-RAY - LUMBAR SPINE REASON FOR EXAM: Female, 45 years old. FALL TODAY. PAIN AND BRUISING TO LOWER BACK. TECHNIQUE: 3 view(s) of the lumbar spine were obtained. COMPARISON: Lumbar spine x-ray dated February 13, 2016 FINDINGS: Normal lumbar lordosis. There is no substantial scoliosis. There is a normal alignment of the vertebrae. Normal vertebral bodies. Minimal anterior endplate spurring is present at several levels. Normal disc space heights. No visualized compression deformities or fractures. Right sacral stimulating catheter reidentified. Surgical suture material is seen in the pelvis. The soft tissue structures are unremarkable. RAD/Lumbar Spine 2 or 3 Views IMPRESSION: Unremarkable x-ray examination of the lumbar spine. Electronically Signed: Randy Yang MD at 19:59 EDT , Service support ,
--- NOTE | 2020-09-22 18:08 | EDS_ITS ---
HPI History of Present Illness Chief Complaint: Fall Detail of Chief Complaint: Fall that occurred approximately 4:30 AM Informant: patient Narrative Narrative: Patient presents to the emergency department with a fall that occurred around 4:30 AM when she was letting her dogs out. Patient states that she slipped on the wet steps of the deck and injured her buttocks and left forearm. Patient has history of chronic back pain and has a spinal stimulator. She denies any pain rating into her legs. She denies weakness in extremities. Patient denies striking her head or loss of consciousness. She denies neck pain. She is not currently on any blood thinners. [facility] Medical History (Updated 09/22/20 @ 18:[address] Ishan Florence, ) Abnormal EKG Abnormal stress test Acute diverticulosis Anxiety and depression Arthritis Back problem Bone fracture Chronic pain syndrome Diverticulosis Essential hypertension Fibromyalgia Gastrointestinal problem GERD (gastroesophageal reflux disease) H/O emotional problems Hx of migraine headaches Irritable bowel syndrome Kidney stones Medical marijuana use Multiple thyroid nodules Numbness and tingling of right arm Numbness and tingling of right face Numbness and tingling of right leg Pneumonia Psoriatic arthropathy Rheumatoid arthritis Seasonal allergies Sleep apnea Thyroid disease Type 2 diabetes mellitus without complication Vitamin deficiency Home Medications CBD rUB TOPICAL 01/14/19 [History Last Taken Unknown] doxazosin 2 mg tablet 2 mg PO BID 90 Days #180 tab 01/12/20 [Rx Last Taken Unknown] losartan 100 mg tablet 100 mg PO DAILY #90 tab 01/12/20 [Rx Last Taken Unknown] metformin 500 mg tablet,extended release 24hr 1,000 mg PO QPM #180 tab 01/12/20 [Rx Last Taken Unknown] calcium carbonate 600 mg (1,500 mg)-vitamin D3 500 unit capsule cap PO 06/02/20 [History Last Taken Unknown] flash glucose scanning reader #1 each 06/02/20 [Rx Last Taken Unknown] flash glucose sensor #2 each 06/27/20 [Rx Last Taken Unknown] glimepiride 4 mg tablet 6 mg .ROUTE .COMPLEX #90 tab 09/07/20 [Rx Last Taken Unknown] hydrochlorothiazide 25 mg tablet 25 mg PO DAILY #90 tab 09/16/20 [Rx Last Taken Unknown] hydrocodone-acetaminophen 1 tab PO Q4H PRN PRN 2 Days #10 tablet 09/22/20 [Rx Last Taken Unknown] Allergy/AdvReac Type Severity Reaction Status Date / Time terbutaline sulfate Allergy Other Verified 09/22/20 17:58 [From Brethine] metoclopramide HCl AdvReac Other Verified 09/22/20 17:58 [From Reglan] Family History Mother Diabetes CVA (cerebral vascular accident) Thyroid disorder Cancer lung Hypertension Father CAD (coronary artery disease) Hypertension Cancer lung Surgical History (Updated 09/22/20 @ 18:03 by Robbin Rod) H/O colectomy H/O right knee surgery H/O thyroidectomy History of nasal surgery History of partial hysterectomy History of tonsillectomy and adenoidectomy History of tubal ligation [place] teeth extracted Social History Smoking Status: Current every day smoker tobacco type: cigarettes how long ago did patient quit smokin days ago alcohol intake: never substance use type: does not use caffeine: Yes Type: coffee Number of servings: 5 what type of physical activity do you participate in: none ROS ROS ED Constitutional Constitutional ED: Reports systems reviewed and no addt'l complaints, except as documented; Denies body ache(s), change in weight or chills Eyes Eyes: Denies acute decrease in peripheral vision, change in vision, double vision or loss of vision ENT ENT ED: Reports none; Denies ear pain, lip swelling, loss taste/smell, neck pain, otalgia or sore throat Cardiovascular Cardiovascular: Reports none; Denies abdominal pain, chest pain with activity, leg edema, lightheadedness, palpitations, rapid heart rate or syncope Respiratory/Chest Respiratory/Chest: Reports none; Denies change in mental status, dry cough, dyspnea, hemoptysis, shortness of breath at rest or shortness of breath with exertion Gastrointestinal Gastrointestinal: Reports none; Denies abdominal pain, change in stool character, diarrhea, hematemesis, hematochezia, melena, rectal bleeding or vomiting Genitourinary Genitourinary ED: Reports none; Denies abdominal discomfort, anuria, dysuria, genital pain or polyuria Musculoskeletal Musculoskeletal: Reports none and other Details: Left arm pain, back pain, and buttock pain ; Denies arthralgias, back pain, difficulty walking, extremity pain, muscle weakness or myalgias Integumentary Reports none; Denies abscess or rash Neurologic Neurologic: Reports none; Denies abnormal gait, confusion, focal weakness, frequent falls, headache(s), loss of vision, numbness, paresthesias, radicular pain, vertigo or weakness Psychiatric Psychiatric: Reports systems reviewed and no addt'l complaints, except as documented and none; Denies behavioral changes, confusion, difficulty concentrating, hallucinations, suicidal ideation, tactile hallucinations or visual hallucinations Endocrine Endocrinology: Denies none, cold intolerance, excessive sweating, fatigue or heat intolerance Hematologic/Lymphatic Hematologic/Lymphatic: Reports none; Denies anemia, easy bleeding or easy bruising Allergic/Immunologic Allergic/Immunologic ED: Denies as per HPI, none, lip swelling, mouth swelling, throat swelling, tongue swelling or hives EXAM Physical Exam Const Vital Signs: 09/22/20 17:57 09/22/20 18:17 Temperature 96.8 F L Temperature Source Temporal Pulse Rate 86 Respiratory Rate 15 Respiratory Effort Normal Non-Labored Respiratory Depth Normal Respiratory Pattern Normal Blood Pressure 158/79 H Blood Pressure Mean 105 Pulse Ox 97 Oxygen Delivery Method Room Air Room Air Positive well nourished and well developed General Appearance ED: well developed and NAD HEENT Reports TM's clear and moist mucous membranes normocephalic and atraumatic; Negative for trauma or tenderness Tympanic Membrane ED: Yes TM's clear Eyes PERRL and EOMs intact bilaterally General Eye ED: Negative for pale conjunctiva or scleral icterus Neck no lymphadenopathy, supple and no JVD General: Negative for tenderness Chest Wall inspection of chest normal and palpation of chest normal Chest: Negative for tenderness Resp normal respiratory effort and clear to auscultation bilaterally Effort and Inspection: Negative for respiratory distress or pain with movement Auscultation: Negative for rhonchi, wheezes or diminished lung sounds Cardio regular rate, regular rhythm, S1 normal heart sound, S2 normal heart sound and no murmurs Peripheral Pulses: pulses 2+ throughout GI normal to inspection, nondistended, normoactive bowel sounds, soft to palpation, non-tender, non-distended and no masses Back/Spine no CVA tenderness and no thoracic nor lumbar tenderness Back/Spine Narrative: Patient has some diffuse tenderness over the lumbar spine as well as the area of the sacrum. There is ecchymosis and bruising noted to the right buttock. Negative straight leg raises. Deep tendon reflexes are plus 2 out of 4 bilaterally at the patella and Achilles. Patient has normal L5 extension bilaterally. Extremity normal to inspection Extremity Narrative: Evaluation of the left forearm reveal soft tissue swelling over the volar aspect of the proximal forearm with some tenderness palpation of the ulna of the mid forearm. Neurovascular intact distally. General Extremety ED: Negative for edema General Extremity: Negative for edema Neuro oriented x3, CN's II-XII intact bilaterally, no sensory deficits noted and gait normal Sensorium / Orientation: awake, alert, oriented to person, oriented to place and oriented to time Motor Exam: strength 5/5 throughout and strength abnormal Psych mental status grossly normal Skin no rashes or lesions noted and no wounds MDM MDM MDM Narrative Medical decision making narrative: X-rays of the patient's forearm as well as lumbar spine and pelvis did not show any fractures as interpreted by myself. Patient does have a bladder stimulator noted. Patient will be given a prescription for [place] for pain for 2 days and advised to follow-up with her primary care physician in 3 to 5 days. Radiography Diagnostic Testin view x-rays of the left forearm obtained interpreted by myself as no acute fractures or dislocations. Patient had three-view lumbar spine x-rays obtained interpreted by myself as no acute fractures. Patient was noted to have a bladder stimulator in place. X-rays and 1 view of pelvis obtained interpreted by myself as no acute fractures. Discharge Plan Triage Chief Complaint: Fall ED Provider: Ishan Florence Dx/Rx/DC Orders Clinical Impression: Fall, Contusion of forearm, Back contusion Instructions: ED Back Contusion, ED Contusion, Upper Extremity Prescriptions: New hydrocodone-acetaminophen [hydrocodone-acetaminophen] 1 TABLET tablet 1 tab PO Q4H PRN PRN (Reason: Pain) 2 Days Qty: 10 RF: 0 No Action CBD rUB TOPICAL RF: 0 losartan 100 mg tablet 100 mg PO DAILY Qty: 90 RF: 2 doxazosin 2 mg tablet 2 mg PO BID 90 Days Qty: 180 RF: 3 metformin 500 mg tablet extended release 24hr 1,000 mg PO QPM Qty: 180 RF: 3 calcium carbonate-vitamin D3 600 mg(1,500mg) -500 unit capsule PO RF: 0 (DME) FreeStyle Brie 14 Day Allyn Misc See Rx Instructions .ROUTE .MEDSUPPLY Qty: 1 RF: 0 glimepiride 4 mg tablet 6 mg .ROUTE .COMPLEX Qty: 90 RF: 3 (DME) FreeStyle Brie 14 Day Sensor Kit See Rx Instructions .ROUTE .MEDSUPPLY Qty: 2 RF: 4 hydrochlorothiazide 25 mg tablet 25 mg PO DAILY Qty: 90 RF: 1 Primary Care Provider: Kanwal Urena Referrals: Kanwal Urena MD [Primary Care Provider] - 5-7 Days Disposition Disposition: Home, Self Care
[2020-09-22] MEDS: HYDROcodone Bitartrate/Apap 5/325 Tablet PO (18:16)
--- NOTE | 2020-09-22 18:25 | RAD_ITS ---
STUDY: X-RAY - LEFT RADIUS AND ULNA REASON FOR EXAM: Female, 45 years old. fall TECHNIQUE: 2 view(s) of the forearm. COMPARISON: None. FINDINGS: There is no demonstrated soft tissue swelling. Normal visualized radius. Normal visualized ulna. There is no demonstrated acute fracture. RAD/Forearm 2 Views IMPRESSION: Normal x-ray examination of the radius and ulna. Electronically Signed: Randy Yang MD at 19:26 EDT , Service support ,
== END 2020-09-22 18:56 | disposition home or self-care (01) ==
PROVIDERS: Emergency Provider Emergency Medicine; PCP Internal Medicine
DX: S30.0XXA Contusion of lower back and pelvis, initial encounter (principal); S50.12XA Contusion of left forearm, initial encounter; W01.0XXA Fall on same level from slipping, tripping and stumbling without subsequent striking against object, initial encounter; Y93.9 Activity, unspecified; Y92.9 Unspecified place or not applicable; I10 Essential (primary) hypertension; E11.9 Type 2 diabetes mellitus without complications; F32.9 Major depressive disorder, single episode, unspecified; F41.9 Anxiety disorder, unspecified; G89.4 Chronic pain syndrome; K21.9 Gastro-esophageal reflux disease without esophagitis; K58.9 Irritable bowel syndrome, unspecified; M79.7 Fibromyalgia; L40.50 Arthropathic psoriasis, unspecified; G47.30 Sleep apnea, unspecified; E07.9 Disorder of thyroid, unspecified; M06.9 Rheumatoid arthritis, unspecified; Z87.442 Personal history of urinary calculi; Z87.01 Personal history of pneumonia (recurrent); Z97.8 Presence of other specified devices; Z79.84 Long term (current) use of oral hypoglycemic drugs; Z79.899 Other long term (current) drug therapy; F17.210 Nicotine dependence, cigarettes, uncomplicated
CPT/HCPCS: 72100; 72170; 73090; 99283

== ENCOUNTER → 2020-12-02 10:24 | Outpatient (CLI) | payer BC, SELFPAY ==
[2020-12-02 12:15] LABS: Absolute Lymphocyte Count 3.18 X10^3/uL (0.83-4.51); Absolute Neutrophil Count 4.4 X10^3/uL (2.0-7.7); Basophil# 0.03 X10^3/uL; Basophil% 0.4 % (0-1); Eosinophil# 0.19 X10^3/uL; Eosinophils% 2.3 % (0-5); Hematocrit 42.8 % (37-47); Hemoglobin 14.6 g/dL (12.0-15.0); Lymphocyte # 3.18 X10^3/ul (0.83-4.51); Lymphocyte % 38.3 % (19-41); Mean Corp Hgb Conc 34.1 g/dL (32-36); Mean Corpuscular Hgb 30.4 pg (27.0-32.0); Mean Corpuscular Volume 89.2 fL (81-99); Mean Platelet Vol. 10.4 fl (6.2-12.0); NRBC Flagged by Analyzer 0 % (0-5); Neutrophil # 4.37 X10^3/uL (2.7-7.7); Neutrophil % 52.6 % (47-70); Platelet Count 289 K/mm3 (150-450); RBC Distribution Width CV 11.8 % (11.6-14.6); RBC Distribution Width SD 38.2 fl (35.1-43.9); White Blood Count 8.3 K/mm3 (4.4-11.0)
[2020-12-02 12:29] LABS: AST(SGOT) 10 U/L (15-37); Alanine Aminotransfer ALT/SGPT 25 U/L (13-56); Albumin, Serum 3.6 g/dL (3.2-5.0); Alkaline Phosphatase 64 U/L (45-117); Anion Gap 6 (5-15); BUN 12 mg/dL (7-18); BUN/Creat Ratio 16.8 RATIO (10-20); Calcium,Total 8.6 mg/dL (8.5-10.1); Chloride 105 mmol/L (98-107); Cholesterol 183 mg/dL (200); Creatinine, Serum 0.72 mg/dL (0.55-1.02); EST Glomerular Filtration Rate 93 mL/min (>60); Est Glom Filt Rate - Afr Amer 113 mL/min (>60); Globulin 3.5 g/dL (2.2-4.2); Glucose 146 mg/dL (74-106); High Density Lipoprotein 49 mg/dL; Potassium 3.6 mmol/L (3.5-5.1); Protein, Total 7.1 g/dL (6.4-8.2); Sodium Level 138 mmol/L (136-145); Triglycerides 125 mg/dL; Very Low Density Lipoprotein 25 mg/dL (5-40)
[2020-12-02 12:43] LABS: Vitamin D,25 Hydroxy 19.1 ng/mL
== END ==
PROVIDERS: PCP Internal Medicine; Referring Provider Internal Medicine; Visit Provider Internal Medicine
DX: I10 Essential (primary) hypertension (principal); E83.51 Hypocalcemia; E11.9 Type 2 diabetes mellitus without complications
CPT/HCPCS: 36415; 80053; 80061; 82306; 85025

== ENCOUNTER → 2021-02-20 07:08 | Outpatient (CLI) | payer BC, SELFPAY ==
--- NOTE | 2021-02-20 07:10 | BI_ITS ---
MAMMOGRAPHY - BILATERAL SCREENING REASON FOR EXAM: Female, 45 years old. Routine annual screening examination. PERTINENT HISTORY: Non-contributory. TECHNIQUE: Digital bilateral breast valeria (3D mammographic acquisition) in the CC and MLO projections. 2-D mediolateral oblique (MLO) and craniocaudad (CC) views of both breasts were obtained. CAD: Full Field Digital Mammography with Computer Added Detection was performed. COMPARISON: Comparison is made with prior study dated 12/21/2019 and 01/01/2019. FINDINGS: Breast Composition: The breasts are almost entirely fatty. There are no dominant masses or suspicious calcifications. No other significant abnormalities are identified. There has been no significant change since the prior study. BI/SCRN MAMM (CAD)W/VALERIA BILAT IMPRESSION: Stable bilateral screening mammogram. Yearly follow-up mammogram recommended. (A) ASSESSMENT CATEGORY: BIRADS Category 2: Benign. A letter regarding these results will be sent to the patient by the facility within 30 days. Approximately 10% of breast cancers are not detected by mammography. A normal mammogram should not delay biopsy of a clinically suspicious abnormality. [id number] Electronically Signed: Andrew Phillips MD at 8:55 EST , Service support ,
== END ==
PROVIDERS: PCP Internal Medicine; Referring Provider Nurse Practitioner Women's Health; Visit Provider Nurse Practitioner Women's Health
DX: Z12.31 Encounter for screening mammogram for malignant neoplasm of breast (principal)
CPT/HCPCS: 77063; 77067

== ENCOUNTER → 2021-03-03 11:21 | Outpatient (CLI) | payer BC, SELFPAY ==
[2021-03-03 13:10] LABS: T4 Free Direct 0.92 ng/dL (0.76-1.46); Thyroid Stim Hormone (TSH) 1.24 uIU/mL (0.358-3.74)
== END ==
PROVIDERS: PCP Internal Medicine; Visit Provider Internal Medicine
DX: Z13.29 Encounter for screening for other suspected endocrine disorder (principal)
CPT/HCPCS: 36415; 84439; 84443

== ENCOUNTER → 2021-03-09 11:39 | Outpatient (CLI) | payer BC, SELFPAY ==
--- NOTE | 2021-03-09 11:41 | RAD_ITS ---
STUDY: X-RAY - CERVICAL SPINE REASON FOR EXAM: Female, 45 years old. Cervical radiculopathy TECHNIQUE: 3 view(s) of the cervical spine were obtained. COMPARISON: None FINDINGS: Normal anterior atlantoaxial articulation. Normal odontoid process. Normal cervical lordosis. Normal vertebral bodies and endplates. Normal disc space heights. The soft tissue structures are unremarkable. RAD/Cerv Spine 2 or 3 Views IMPRESSION: Within normal limits x-ray examination of the visualized cervical spine. Electronically Signed: Thea Cardenas MD at 12:21 EST Tel , Service support ,
--- NOTE | 2021-03-09 11:41 | RAD_ITS ---
STUDY: X-RAY - LUMBAR SPINE REASON FOR EXAM: Female, 45 years old. Chronic back pain TECHNIQUE: 5 view(s) of the lumbar spine were obtained. COMPARISON: 09/22/2020 FINDINGS: Normal lumbar lordosis. There is no substantial scoliosis. There is a normal alignment of the vertebrae. There is multilevel endplate spondylosis of the lumbar vertebrae. Normal disc space heights. There is a stimulator device in place projecting over the ventral sacrum with a lead terminating within the presacral region right of midline The soft tissue structures are unremarkable. RAD/L/S Spine Min 4 Views IMPRESSION: Multilevel endplate spondylosis. Electronically Signed: Thea Cardenas MD at 14:29 EST Tel , Service support ,
== END ==
LOC: MTRAD 11:40
PROVIDERS: PCP Internal Medicine; Referring Provider Internal Medicine; Visit Provider Internal Medicine
DX: M54.12 Radiculopathy, cervical region (principal); M54.9 Dorsalgia, unspecified; G89.29 Other chronic pain
CPT/HCPCS: 72040; 72110

== ENCOUNTER 2021-05-26 11:10 | Outpatient (CLI) | payer BC, SELFPAY ==
[2021-05-26 12:32] LABS: ALB/GLOB Ratio 1.1 RATIO (0.9-2.4); AST(SGOT) 9 U/L (15-37); Alanine Aminotransfer ALT/SGPT 17 U/L (13-56); Albumin, Serum 3.2 g/dL (3.2-5.0); Alkaline Phosphatase 51 U/L (45-117); Anion Gap 5 (5-15); BUN 10 mg/dL (7-18); BUN/Creat Ratio 14.3 RATIO (10-20); Calcium,Total 7.7 mg/dL (8.5-10.1); Chloride 108 mmol/L (98-107); EST Glomerular Filtration Rate 95 mL/min (>60); Est Glom Filt Rate - Afr Amer 116 mL/min (>60); Globulin 2.9 g/dL (2.2-4.2); Glucose 250 mg/dL (74-106); Potassium 3.7 mmol/L (3.5-5.1); Protein, Total 6.1 g/dL (6.4-8.2); Sodium Level 138 mmol/L (136-145)
[2021-05-26 12:45] LABS: Microalbumin,Random Urine 5.6 mg/L (NO RANGE EST.); Microalbumin:Creatinine Ratio 8.7 mg/g CRE (<30 mg/g CRE)
== END 2021-05-26 23:59 | disposition home or self-care (01) ==
LOC: BIMLAB 11:11
PROVIDERS: PCP Internal Medicine; Referring Provider Internal Medicine; Visit Provider Internal Medicine
DX: E11.69 Type 2 diabetes mellitus with other specified complication (principal)
CPT/HCPCS: 36415; 80053; 82043; 82570

== ENCOUNTER 2021-08-25 10:37 | Emergency (ER) | payer BC, SELFPAY ==
[2021-08-25 10:38] VITALS: BP 132/83; PULSE 84; RESP 16; TEMP 36.8; O2SAT 99; BMI 29.4
--- NOTE | 2021-08-25 10:55 | CT_ITS ---
STUDY: CT ABDOMEN AND PELVIS WITH CONTRAST REASON FOR EXAM: Female, 46 years old. lower abd pain. Hx of diverticulitis RADIATION DOSAGE (If Supplied By Facility): CTDIvol = ( 11.68 ) mGy, DLP = ( 890.96 ) mGycm TECHNIQUE: Transaxial images were obtained from the dome of the diaphragm to the symphysis pubis without oral contrast. IV 100mL [id number]-300 was administered. Sagittal and coronal images were reconstructed. Individualized dose optimization techniques were used for this CT. COMPARISON: None. FINDINGS: The visualized lung bases are unremarkable. The visualized portions of the heart are within normal limits. Normal liver. Normal gallbladder and extrahepatic biliary system. Normal spleen. Normal pancreas. Normal bilateral adrenal glands. Normal right kidney. Normal left kidney. Normal visualized stomach. Normal small intestine. There is diverticulosis, with thickening of the colon wall, and pericolonic inflammation changes consistent with acute diverticulitis. No loculated fluid collection to suggest abscess. No pneumoperitoneum to suggest perforation. Suture line in the distal sigmoid colon. There are surgical clips in the region of the appendix consistent with a prior appendectomy. Normal abdominal aorta. Normal inferior vena cava. Normal retroperitoneum. Normal urinary bladder. Sacral stimulator in the right flank. Normal abdominal wall. Mild levoscoliosis lumbar spine with degenerative disc disease. CT/Abdomen/Pelvis W IV Cont ONLY IMPRESSION: Diverticulitis of the proximal sigmoid colon without abscess or perforation. Electronically Signed: Zach Tavera MD at 12:48 EDT ,
--- NOTE | 2021-08-25 10:57 | EDS_ITS ---
HPI HPI - GI History of Present Illness Chief Complaint: Abd Pain Informant: patient Abdominal Pain/Flank Pain Onset: Yesterday Context: Gradual Onset Timing: Continuous Quality: Aching Location: RLQ and LLQ Current Severity: Moderate Maximum Severity: Moderate Worsened by: Nothing Relieved by: Nothing Nausea/Vomiting/Emesis GI Symptom: Positive for Nausea; Negative for Vomiting Onset: Today and Yesterday Quality: Negative for Nonbilious Severity: Mild Diarrhea/Melena/Hematochezia GI Symptom: Negative for Diarrhea, Melena and Hematochezia Associated Symptoms Associated Symptoms: Negative for Dysuria, Frequency, Hematuria and Urgency Narrative Narrative: 46-year-old female history of prior diverticulitis. Also prior partial colectomy due to diverticulitis, partial hysterectomy and appendectomy. She also has a history of diabetes. States she is having lower abdominal pain since yesterday. Associated nausea. No vomiting, diarrhea or dysuria. No fever or chills. No vaginal bleeding. Prior similar symptoms: Yes Recent Illness/Hospitalization: No PFSH PFSH Medical History Abnormal EKG Abnormal stress test Acute diverticulosis Anxiety and depression Arthritis Back problem Bone fracture Cervical radiculopathy Chronic back pain Chronic pain syndrome Colon cancer screening Diverticulosis Essential hypertension Fibromyalgia Gastrointestinal problem GERD (gastroesophageal reflux disease) H/O emotional problems Hx of migraine headaches Hypocalcemia Irritable bowel syndrome Kidney stones Medical marijuana use Multiple thyroid nodules Numbness and tingling of right arm Numbness and tingling of right face Numbness and tingling of right leg Pneumonia Psoriatic arthropathy Rheumatoid arthritis Screening for thyroid disorder Seasonal allergies Sleep apnea Thyroid disease Tobacco abuse Type 2 diabetes mellitus without complication Vitamin deficiency Home Medications CBD rUB 1 applic TOPICAL DAILY 01/14/19 [History Last Taken Unknown] glimepiride 4 mg tablet 4 mg PO BID 90 Days #180 tab 12/02/20 [Rx Last Taken Unknown] hydrochlorothiazide 25 mg tablet 25 mg PO DAILY #90 tab 02/23/21 [Rx Last Taken Unknown] flash glucose scanning reader #4 ea 03/03/21 [Rx Last Taken Unknown] flash glucose sensor #4 ea 03/03/21 [Rx Last Taken Unknown] losartan 100 mg tablet 100 mg PO DAILY #90 tab 03/06/21 [Rx Last Taken Unknown] metformin 500 mg tablet,extended release 24hr 2,000 mg PO QPM 90 Days #360 tab 05/26/21 [Rx Last Taken Unknown] ciprofloxacin HCl 500 mg PO BID 10 Days #20 tab 08/25/21 [Rx Last Taken Unknown] hydrocodone-acetaminophen 1 tab PO Q4H PRN 4 Days #16 tab 08/25/21 [Rx Last Taken Unknown] metronidazole 500 mg PO TID 10 Days #30 tab 08/25/21 [Rx Last Taken Unknown] ondansetron 8 mg PO Q8H PRN #7 tab 08/25/21 [Rx Last Taken Unknown] Allergy/AdvReac Type Severity Reaction Status Date / Time terbutaline sulfate Allergy Other Verified 08/25/21 10:38 [From Brethine] metoclopramide HCl AdvReac Other Verified 08/25/21 10:38 [From Reglan] Family History Mother Diabetes CVA (cerebral vascular accident) Thyroid disorder Cancer lung Hypertension Father CAD (coronary artery disease) Hypertension Cancer lung Surgical History H/O colectomy H/O right knee surgery H/O thyroidectomy History of nasal surgery History of partial hysterectomy History of tonsillectomy and adenoidectomy History of tubal ligation [place] teeth extracted Social History Smoking Status: Former smoker alcohol intake: never substance use type: does not use caffeine: Yes Type: coffee Number of servings: 5 what type of physical activity do you participate in: none ROS ROS ED ROS Narrative Abdominal pain. Nausea. Review of Systems ROS Unobtainable: Denies due to encephalopathy Constitutional Constitutional ED: Denies fever(s) ENT ENT ED: Denies ear pain Cardiovascular Cardiovascular: Denies chest pain Respiratory/Chest Respiratory/Chest: Denies cough or dyspnea Gastrointestinal Gastrointestinal: Reports abdominal pain and nausea; Denies constipation, diarrhea, melena or vomiting Genitourinary Genitourinary ED: Denies dysuria or hematuria Musculoskeletal Musculoskeletal: Denies myalgias Integumentary Denies rash Neurologic Neurologic: Denies headache(s) Psychiatric Psychiatric: Denies depression Endocrine Endocrinology: Denies polyuria Hematologic/Lymphatic Hematologic/Lymphatic: Denies easy bruising Allergic/Immunologic Allergic/Immunologic ED: Denies urticaria EXAM Physical Exam Narrative Exam Narrative: White female no acute distress vital signs stable afebrile. H EENT exam unremarkable. Neck nontender no lymphadenopathy. Lungs clear to auscultation bilaterally. Heart regular rhythm no murmur. Abdomen soft nondistended normal bowel sounds no peritoneal signs. She is tender suprapubically and medial both lower quadrants. There is no hernia or mass. No obstruction. No pulsatile mass. Patient moving all 4 extremities. Nontender no edema. Neurologically she is awake and alert. Const Vital Signs: 08/25/21 10:38 Temperature 98.2 F Temperature Source Temporal Pulse Rate 84 Respiratory Rate 16 Blood Pressure 132/83 H Blood Pressure Mean 99 Pulse Ox 99 Oxygen Delivery Method Room Air Positive well nourished, well developed and obese; Negative for cachectic, contractures or unkempt General Appearance ED: well developed and NAD; Negative for unkempt, cachectic, contractures or pallor Nutritional Appearance: obese; Negative for cachectic HEENT Reports moist mucous membranes normocephalic and atraumatic; Negative for trauma or tenderness Eyes PERRL and EOMs intact bilaterally Neck no lymphadenopathy, supple and no JVD General: Negative for tenderness Resp normal respiratory effort and clear to auscultation bilaterally Auscultation: Negative for rales, rhonchi or wheezes Cardio regular rate, regular rhythm, S1 normal heart sound, S2 normal heart sound and no murmurs GI non-distended and no masses; Negative for non-tender Inspection: Negative for abdominal distention Auscultation: normoactive bowel sounds; Negative for hyperactive bowel sounds or hypoactive bowel sounds Palpation: soft, tender and rebound tenderness present; Negative for guarding, rigid, hepatomegaly, splenomegaly or pulsatile mass Back/Spine no CVA tenderness General Back: Negative for CVA tenderness Extremity full ROM General Extremety ED: Negative for edema or tenderness General Extremity: Negative for edema Neuro moves all extremities Sensorium / Orientation: alert, oriented to person, oriented to place and oriented to time; Negative for confused, lethargic or stuporous Motor Exam: strength 5/5 throughout Psych mental status grossly normal and thought process normal Appearance: Negative for unkempt Mood & Affect: Negative for depressed or tearful Skin no wounds General Skin Exam: Negative for jaundice or pallor Lesions: no lesions Rashes: no rashes MDM MDM MDM Narrative Medical decision making narrative: 46-year-old female lower abdominal pain. Strongly consider diverticulitis versus other etiologies. Reportedly has had a partial hysterectomy and appendectomy. She had urine checked at the urgent care prior to arrival which was reportedly negative and she is having no urinary symptoms. She will be treated with IV morphine and Zofran. CAT scan labs pending. Repeat exam patient doing well at 12:30 PM. She was given a second dose of morphine and Zofran. She will be discharged home on Cipro twice daily for 10 days and Flagyl 3 times daily for 10 days. [place] for pain. Zofran for nausea. Follow-up with her primary care physician if not improving or return if worse. Lab Data Attestation: I reviewed the patient's lab results. Lab results narrative: CBC is unremarkable shows a white count of 11. H&H of 13.6 and 39. Chemistries normal gap is 6 normal BUN and creatinine. Glucose 153. Liver enzymes normal. CAT scan is read the radiologist reviewed by me shows sigmoid diverticulitis. No perforation. No abscess. Labs: Laboratory Results - last 24 hr 08/25/21 08/25/21 11:00 11:00 WBC 11.0 RBC 4.49 Hgb 13.6 Hct 39.4 MCV 87.8 MCH 30.3 MCHC 34.5 RDW Std Deviation 36.8 RDW Coeff of Karly 11.5 L Plt Count 252 MPV 10.1 Immature Gran % (Auto) 0.400 Neut % (Auto) 65.4 Lymph % (Auto) 24.1 [place] % (Auto) 7.2 Eos % (Auto) 2.5 Baso % (Auto) 0.4 Absolute Neuts (auto) 7.2 Absolute Lymphs (auto) 2.64 Nucleated RBC % 0 Sodium 138 Potassium 3.5 Chloride 107 Carbon Dioxide 25.0 Anion Gap 6 BUN 6 L Creatinine 0.56 Estim Creat Clear Calc 111.75 Est GFR (MDRD) Af Amer 148 Est GFR (MDRD) Non-Af 122 BUN/Creatinine Ratio 10.7 Glucose 153 H Calcium 8.4 L Total Bilirubin 0.40 AST 31 ALT 44 Alkaline Phosphatase 65 Total Protein 6.6 Albumin 3.3 Globulin 3.3 Albumin/Globulin Ratio 1.0 Radiography Diagnostic Testing: Clinical Impression(s) from Imaging Studies Abdomen/Pelvis CT 08/25/21 10:55 IMPRESSION: Diverticulitis of the proximal sigmoid colon without abscess or perforation. Electronically Signed: Zach Tavrea MD at 12:48 EDT , Discharge Plan Triage Chief Complaint: Abd Pain ED Provider: Trever Freedman Dx/Rx/DC Orders Clinical Impression: Diverticulitis, History of diabetes mellitus Instructions: ED Diverticulitis Prescriptions: New ciprofloxacin HCl 500 mg tablet 500 mg PO BID 10 Days Qty: 20 RF: 0 metronidazole 500 mg tablet 500 mg PO TID 10 Days Qty: 30 RF: 0 ondansetron 4 mg tablet,disintegrating 8 mg PO Q8H PRN (Reason: nausea and vomiting) Qty: 7 RF: 0 hydrocodone-acetaminophen 5-325 mg tablet 1 tab PO Q4H PRN (Reason: pain) 4 Days Qty: 16 RF: 0 No Action CBD rUB 1 applic TOPICAL DAILY RF: 0 glimepiride 4 mg tablet 4 mg PO BID 90 Days Qty: 180 RF: 3 (DME) FreeStyle Brie 14 Day [place] Misc See Rx Instructions .ROUTE .MEDSUPPLY Qty: 4 RF: 3 (DME) FreeStyle Brie 14 Day Sensor Kit See Rx Instructions .ROUTE .MEDSUPPLY Qty: 4 RF: 4 metformin 500 mg tablet extended release 24hr 2,000 mg PO QPM 90 Days Qty: 360 RF: 3 hydrochlorothiazide 25 mg tablet 25 mg PO DAILY Qty: 90 RF: 2 losartan 100 mg tablet 100 mg PO DAILY Qty: 90 RF: 3 Primary Care Provider: Kanwal Urena Referrals: Kanwal Urena MD [Primary Care Provider] - 3-5 Days if not improving Activity Restrictions/Additional Instructions: You have sigmoid diverticulitis. Cipro 1 pill twice a day for 10 days. Flagyl 1 pill 3 times a day for 10 days. Do not drink alcohol while you are on antibiotics. Plenty of fluids and rest. [place] for pain. Zofran as needed for nausea. Follow-up with your doctor to ensure you are improving or return if worse. Disposition Disposition: Home, Self Care
[2021-08-25] MEDS: morphine 8 MG/ML Syringe IV ×2 (11:06→12:54)
[2021-08-25] MEDS: Ondansetron 4 MG/2 ML Vial IV ×2 (11:06→12:53)
[2021-08-25 11:19] LABS: Absolute Lymphocyte Count 2.64 X10^3/uL (0.83-4.51); Absolute Neutrophil Count 7.2 X10^3/uL (2.0-7.7); Basophil# 0.04 X10^3/uL; Basophil% 0.4 % (0-1); Eosinophil# 0.27 X10^3/uL; Eosinophils% 2.5 % (0-5); Hematocrit 39.4 % (37-47); Hemoglobin 13.6 g/dL (12.0-15.0); Lymphocyte # 2.64 X10^3/ul (0.83-4.51); Lymphocyte % 24.1 % (19-41); Mean Corp Hgb Conc 34.5 g/dL (32-36); Mean Corpuscular Hgb 30.3 pg (27.0-32.0); Mean Corpuscular Volume 87.8 fL (81-99); Mean Platelet Vol. 10.1 fl (6.2-12.0); Monocyte# 0.79 X10^3/uL; Monocyte% 7.2 % (0-10); NRBC Flagged by Analyzer 0 % (0-5); Neutrophil # 7.17 X10^3/uL (2.7-7.7); Neutrophil % 65.4 % (47-70); Platelet Count 252 K/mm3 (150-450); RBC Distribution Width CV 11.5 % (11.6-14.6); RBC Distribution Width SD 36.8 fl (35.1-43.9); Red Blood Count 4.49 M/mm3 (4.2-5.4)
[2021-08-25 11:49] LABS: AST(SGOT) 31 U/L (15-37); Alanine Aminotransfer ALT/SGPT 44 U/L (13-56); Albumin, Serum 3.3 g/dL (3.2-5.0); Alkaline Phosphatase 65 U/L (45-117); Anion Gap 6 (5-15); BUN 6 mg/dL (7-18); BUN/Creat Ratio 10.7 RATIO (10-20); Calcium,Total 8.4 mg/dL (8.5-10.1); Chloride 107 mmol/L (98-107); Creatinine, Serum 0.56 mg/dL (0.55-1.02); EST Glomerular Filtration Rate 122 mL/min (>60); Est Glom Filt Rate - Afr Amer 148 mL/min (>60); Estimated Creatinine Clearance 111.75 ml/min; Globulin 3.3 g/dL (2.2-4.2); Glucose 153 mg/dL (74-106); Potassium 3.5 mmol/L (3.5-5.1); Protein, Total 6.6 g/dL (6.4-8.2); Sodium Level 138 mmol/L (136-145)
[2021-08-25 13:07] VITALS: RESP 16
[2021-08-25] MEDS: metroNIDAZOLE 500 MG Tablet PO (13:11)
[2021-08-25] MEDS: Ciprofloxacin 500 MG Tablet PO (13:11)
== END 2021-08-25 13:16 | disposition home or self-care (01) ==
PROVIDERS: Emergency Provider Emergency Medicine; PCP Internal Medicine; Visit Provider Emergency Medicine
DX: K57.32 Diverticulitis of large intestine without perforation or abscess without bleeding (principal); L40.50 Arthropathic psoriasis, unspecified; M06.9 Rheumatoid arthritis, unspecified; E11.9 Type 2 diabetes mellitus without complications; F41.9 Anxiety disorder, unspecified; F32.A Depression, unspecified; M54.12 Radiculopathy, cervical region; G89.4 Chronic pain syndrome; K21.9 Gastro-esophageal reflux disease without esophagitis; M79.7 Fibromyalgia; K58.9 Irritable bowel syndrome, unspecified; Z87.442 Personal history of urinary calculi; Z87.01 Personal history of pneumonia (recurrent); G47.30 Sleep apnea, unspecified; I10 Essential (primary) hypertension; Z79.84 Long term (current) use of oral hypoglycemic drugs; Z79.899 Other long term (current) drug therapy; Z87.891 Personal history of nicotine dependence; E66.9 Obesity, unspecified; Z68.29 Body mass index [BMI] 29.0-29.9, adult
CPT/HCPCS: 74177; 80053; 85025; 96374; 96375; 96376; 99284; Q9967; A4216; J2405

== ENCOUNTER 2021-12-09 12:40 | Emergency (ER) | payer BC, SELFPAY ==
[2021-12-09 12:42] VITALS: BP 201/106; PULSE 87; RESP 16; TEMP 36.4; O2SAT 98; BMI 28.8
--- NOTE | 2021-12-09 13:16 | ED.VIS.BACK ---
HPI History of Present Illness Chief Complaint: Back Detail of Chief Complaint: Left low back pain radiating down the entire leg Informant: patient Onset/Context/Timing Onset: Yesterday Context: Sudden Onset Injury: - (Driving home from work. Works as a medical device sales consultant) Timing: Continuous Quality: Dull Location: Lumbar, Buttock and Left Leg Current Severity: Severe Maximum Severity: Severe Worsened by: improves with Movement, Ambulation and Bending Relieved by: Nothing Associated Symptoms Associated Symptoms: Radiation to Right Leg; Negative for Numbness, Tingling, Fever, Abdominal Pain, Dysuria, Unable to Ambulate, Unable to Transfer, Urinary Retention, Urinary Incontinence, Constipation or Fecal Incontinence Narrative Narrative: Patient is a 46-year-old woman with history of type 2 diabetes, hypertension, sleep apnea, chronic pain syndrome, fibromyalgia and chronic back pain. She states she had neck pain a week ago but thought it was due to sleeping in an awkward position. She has no constitutional symptoms. She denies cardiac respiratory symptoms. She denies GI symptoms. She denies bowel bladder dysfunction. She denies saddle paresthesia or anesthesia. She reports foot drop and her knee buckling going up and down steps. Asked if it was due to weakness versus pain and there was no response. Prior similar symptoms: No Recent Illness/Hospitalization: No PFSH PFSH Medical History Abnormal EKG Abnormal stress test Acute diverticulosis Anxiety and depression Arthritis Back problem Bone fracture Cervical radiculopathy Chronic back pain Chronic pain syndrome Colon cancer screening Diverticulosis Essential hypertension Fibromyalgia Gastrointestinal problem GERD (gastroesophageal reflux disease) H/O emotional problems Hx of migraine headaches Hypocalcemia Irritable bowel syndrome Kidney stones Medical marijuana use Multiple thyroid nodules Numbness and tingling of right arm Numbness and tingling of right face Numbness and tingling of right leg Pneumonia Psoriatic arthropathy Rheumatoid arthritis Screening for thyroid disorder Seasonal allergies Sleep apnea Thyroid disease Tobacco abuse Type 2 diabetes mellitus without complication Vitamin deficiency Home Medications CBD rUB 1 applic topical DAILY 01/14/19 [History Last Taken Unknown] glimepiride 4 mg tablet 4 mg PO BID 3 months #180 tabs 12/02/20 [Rx Last Taken Unknown] hydrochlorothiazide 25 mg tablet 25 mg PO DAILY #90 tabs 02/23/21 [Rx Last Taken Unknown] flash glucose scanning reader (FreeStyle Brie 14 Day [place]) #4 ea 03/03/21 [Rx Last Taken Unknown] losartan 100 mg tablet 100 mg PO DAILY #90 tabs 03/06/21 [Rx Last Taken Unknown] metformin 500 mg tablet,extended release 24hr 2,000 mg PO QPM 3 months #360 tabs 05/26/21 [Rx Last Taken Unknown] hydrocodone-acetaminophen 5-325mg 5mg-325mg 1 tab PO Q4H PRN pain 4 days #16 tabs 08/25/21 [Rx Last Taken Unknown] ondansetron 4 mg disintegrating tablet 8 mg PO Q8H PRN nausea and vomiting #7 tabs 08/25/21 [Rx Last Taken Unknown] acetic acid 2 % ear solution 4 drp otic (ear) TID #15 mL 09/22/21 [Rx Last Taken Unknown] cyclobenzaprine 5 mg tablet 5 mg PO BID fibromyalgia #90 tabs 09/22/21 [Rx Last Taken Unknown] flash glucose sensor ([employer]vio 14 Day Sensor kit) #4 ea 11/27/21 [Rx Last Taken Unknown] hydrocodone-acetaminophen 5-325mg 5mg-325mg 1 tab PO Q6H PRN PRN Pain 3 days #10 TABLETS 12/09/21 [Rx Last Taken Unknown] Allergy/AdvReac Type Severity Reaction Status Date / Time terbutaline sulfate Allergy Other Verified 12/09/21 12:41 [From Brethine] metoclopramide HCl AdvReac Other Verified 12/09/21 12:41 [From Reglan] Family History Mother Diabetes CVA (cerebral vascular accident) Thyroid disorder Cancer lung Hypertension Father CAD (coronary artery disease) Hypertension Cancer lung Surgical History H/O colectomy H/O right knee surgery H/O thyroidectomy History of nasal surgery History of partial hysterectomy History of tonsillectomy and adenoidectomy History of tubal ligation [place] teeth extracted Social History (Updated 12/09/21 @ 13:[address] Franco Wood MD) household members: spouse Smoking Status: Former smoker alcohol intake: never substance use type: does not use caffeine: Yes Type: coffee Number of servings: 5 what type of physical activity do you participate in: none ROS ROS ED Constitutional Constitutional ED: Denies chills, fever(s), subjective, sweats or weight loss ENT ENT ED: Denies ear pain, rhinorrhea or sore throat Cardiovascular Cardiovascular: Denies chest pain or palpitations Gastrointestinal Gastrointestinal: Denies abdominal pain, constipation, diarrhea, melena, nausea or vomiting Genitourinary Genitourinary ED: Reports other Details: Patient has a bladder stimulator. She states she is never had an MRI of her back. ; Denies dysuria, hematuria or urinary frequency Musculoskeletal Musculoskeletal: Reports back pain; Denies arthralgias, myalgias or neck pain Integumentary Denies Abrasions or rash Neurologic Neurologic: Denies paresthesias or weakness Hematologic/Lymphatic Hematologic/Lymphatic: Denies easy bleeding or easy bruising EXAM Physical Exam Const Vital Signs: 12/09/21 12:42 12/09/21 15:20 Temperature 97.5 F L Temperature Source Temporal Pulse Rate 87 58 L Respiratory Rate 16 17 Blood Pressure 201/106 H 179/85 H Blood Pressure Mean 137 116 Pulse Ox 98 95 Oxygen Delivery Method Room Air Room Air Positive well nourished and well developed; Negative for cachectic, contractures or unkempt Constitutional Narrative: Patient is lying in the examination room with lights out. She is slightly on her right side. General Appearance ED: well developed; Negative for unkempt, cachectic or contractures Nutritional Appearance: Negative for cachectic HEENT Reports moist mucous membranes HEENT Narrative: Ears normal. Nares patent. Head is atraumatic normocephalic. Eyes PERRL and EOMs intact bilaterally General Eye ED: Negative for scleral icterus Neck supple and no JVD Resp normal respiratory effort and clear to auscultation bilaterally Cardio regular rate and regular rhythm GI normal to inspection, nondistended, normoactive bowel sounds, soft to palpation, non-tender, non-distended and no masses GI Narrative: No palp pulsatile mass or abdominal bruit. Back/Spine normal to inspection Thoracic Spine / Upper Back: paraspinal muscle tenderness Lumbar Spine / Lower Back: ROM limited and straight leg raise negative bilaterally Extremity normal to inspection and no clubbing, cyanosis or edema Extremity Narrative: DP and PT pulse are palpable. Neuro oriented x3 and no sensory deficits noted Neuro Narrative: Patient's gait observed. There is no foot drop. She is able to walk on heels and toes. When assessing extensor pollicis longus there was no effort either side. Patient is able to perform a 1 legged squat on the right side or left side. Sensation is normal. The pain is not radicular. Suspect this is musculoskeletal pain. Sensorium / Orientation: alert Deep Tendon Reflexes: Rt Patellar (L4): 2+, Lt Patellar (L4): 2+, Rt Ankle (S1): 2+ and Lt Ankle (S1): 2+ Deep Tendon Reflexes Back: Rt Patellar (L4): 2+, Lt Patellar (L4): 2+, Rt Ankle (S1): 2+ and Lt Ankle (S1): 2+ Plantar Reflex: Downgoing: bilateral (Of clonus bilaterally as well) Psych Psych Narrative: Patient is slightly upset/agitated regarding questions I asked her. I informed her that I would treat her with pain medicine and she requested nausea medicine. I informed her I will gladly give her medicine for nausea. Appearance: Negative for unkempt Mood & Affect: depressed Skin no rashes or lesions noted and no wounds MDM MDM MDM Narrative Medical decision making narrative: Patient has musculoskeletal low back pain. Her physical exam is not consistent with herniated disc. Her pain is not in a radicular sebaceum. Since she is diabetic with hypertension and concern for renal disease she was not treated with Toradol. She was treated with IV morphine and Zofran for the nausea. Will reassess once her pain is under better control. In my opinion at this time imaging is not warranted. I was informed by nursing staff the patient was concerned that images were obtained. When I did go back to reevaluate her informed that she had no improvement. She is on her right side. She is rubbing her left buttocks. She is moving and there is no grimacing when she moves. She was given additional dose of morphine. She was told she does not meet criteria for x-rays or MRI at this point. She was informed that MRI is obtained when there is suspicion for a lesion that will require surgery. Since there is no concern at this time that she has a lesion that would require surgery there is no indication for an MRI. Patient was reassessed at 1519. Patient does report improvement. She was discharged home with a short course of Vicodin. She will contact her physician on Saturday. Discharge Plan Triage Chief Complaint: Back ED Provider: Franco Wood Dx/Rx/DC Orders Clinical Impression: Low back pain radiating to left leg, Fibromyalgia, Hypertension, History of type 2 diabetes mellitus Instructions: ED Back and Neck Pain, General Prescriptions: New hydrocodone-acetaminophen [hydrocodone-acetaminophen] 5-325 mg tablet 1 tab PO Q6H PRN PRN (Reason: Pain) 3 Days Qty: 10 0RF No Action CBD rUB 1 applic TOPICAL DAILY glimepiride 4 mg tablet 4 mg PO BID 90 Days Qty: 180 3RF (DME) FreeStyle Brie 14 Day [place] Misc See Rx Instructions .ROUTE .MEDSUPPLY Qty: 4 3RF Rx Instructions: As directed metformin 500 mg tablet extended release 24hr 2,000 mg PO QPM 90 Days Qty: 360 3RF cyclobenzaprine 5 mg tablet 5 mg PO BID Qty: 90 0RF Rx Instructions: Start by taking one pill at bedtime. acetic acid 2 % solution 4 drp otic (ear) TID Qty: 15 0RF ondansetron 4 mg tablet,disintegrating 8 mg PO Q8H PRN (Reason: nausea and vomiting) Qty: 7 0RF hydrocodone-acetaminophen 5-325 mg tablet 1 tab PO Q4H PRN (Reason: pain) 4 Days Qty: 16 0RF hydrochlorothiazide 25 mg tablet 25 mg PO DAILY Qty: 90 2RF losartan 100 mg tablet 100 mg PO DAILY Qty: 90 3RF (DME) FreeStyle Brie 14 Day Sensor Kit See Rx Instructions .ROUTE .MEDSUPPLY Qty: 4 4RF Rx Instructions: As directed Primary Care Provider: Kanwal Urena Referrals: Kanwal Urena MD [Primary Care Provider] - Disposition Disposition: Home, Self Care
[2021-12-09] MEDS: Ondansetron 4 MG/2 ML Vial IV (13:32)
[2021-12-09] MEDS: Morphine 4 MG/ML Syringe IV ×2 (13:32→14:36)
[2021-12-09 15:20] VITALS: BP 179/85; PULSE 58; RESP 17; O2SAT 95
[2021-12-09 15:33] VITALS: BP 191/104; PULSE 78; RESP 16; O2SAT 98
== END 2021-12-09 15:35 | disposition home or self-care (01) ==
PROVIDERS: Emergency Provider Emergency Medicine; PCP Internal Medicine; Visit Provider Emergency Medicine
DX: M54.50 Low back pain, unspecified (principal); M06.9 Rheumatoid arthritis, unspecified; L40.50 Arthropathic psoriasis, unspecified; E11.9 Type 2 diabetes mellitus without complications; I10 Essential (primary) hypertension; G47.30 Sleep apnea, unspecified; G89.4 Chronic pain syndrome; M79.7 Fibromyalgia; F32.A Depression, unspecified; F41.9 Anxiety disorder, unspecified; K21.9 Gastro-esophageal reflux disease without esophagitis; K58.9 Irritable bowel syndrome, unspecified; Z87.442 Personal history of urinary calculi; Z79.84 Long term (current) use of oral hypoglycemic drugs; Z79.899 Other long term (current) drug therapy; Z87.891 Personal history of nicotine dependence
CPT/HCPCS: 96374; 96375; 99283; A4216; J2405

== ENCOUNTER 2022-01-07 10:00 | Emergency (ER) | payer OTHER, SELFPAY ==
[2022-01-07 10:01] VITALS: BP 169/114; PULSE 82; RESP 18; TEMP 36.3; O2SAT 95; BMI 28.9
--- NOTE | 2022-01-07 10:34 | EX.ED.UPPERE ---
HPI History of Present Illness HPI Narrative: Atraumatic right shoulder pain Chief Complaint: Upper Extremity Injury Informant: patient and spouse/S.O. Occured/Mechanism Mechanism/Context: No injury and No blunt trauma Onset/Context/Timing Onset: Days Context: Gradual Onset Timing: Continuous Quality of Pain: Dull and Aching Current Severity: Moderate Maximum Severity: Moderate Associated Symptoms Associated Symptoms: Negative for Parasthesia, Weakness or Loss of Funtion Narrative Narrative: 46-year-old female with a history of diabetes. 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 On Saturday she started developing right posterior shoulder pain. Denies any fever or chills. No fall or trauma. Was seen in urgent care on they placed her on a tapering dose of prednisone. States is not improving. Its worse with movement. She is right-hand dominant. She has never had any surgery on her right shoulder. Prior similar symptoms: No Recent Illness/Hospitalization: No PFSH PFSH Medical History Abnormal EKG Abnormal stress test Acute diverticulosis Anxiety and depression Arthritis Back problem Bone fracture Cervical myofascial strain Cervical radiculopathy Chronic back pain Chronic pain syndrome Colon cancer screening Diverticulosis Essential hypertension Fibromyalgia Gastrointestinal problem GERD (gastroesophageal reflux disease) H/O emotional problems Hx of migraine headaches Hypocalcemia Irritable bowel syndrome Kidney stones Medical marijuana use Multiple thyroid nodules Numbness and tingling of right arm Numbness and tingling of right face Numbness and tingling of right leg Pneumonia Psoriatic arthropathy Rheumatoid arthritis Screening for thyroid disorder Seasonal allergies Sleep apnea Thyroid disease Tobacco abuse Type 2 diabetes mellitus without complication Vitamin deficiency Home Medications CBD rUB 1 applic topical DAILY 01/14/19 [History Last Taken Unknown] glimepiride 4 mg tablet 4 mg PO BID 3 months #180 tabs 12/02/20 [Rx Last Taken Unknown] hydrochlorothiazide 25 mg tablet 25 mg PO DAILY #90 tabs 02/23/21 [Rx Last Taken Unknown] flash glucose scanning reader (SharePlowStyle Brie 14 Day [place]) #4 ea 03/03/21 [Rx Last Taken Unknown] losartan 100 mg tablet 100 mg PO DAILY #90 tabs 03/06/21 [Rx Last Taken Unknown] flash glucose sensor (FreeStyle Brie 14 Day Sensor kit) #4 ea 11/27/21 [Rx Last Taken Unknown] cyclobenzaprine 5 mg tablet 5 mg PO BID fibromyalgia #180 tabs 01/02/22 [Rx Last Taken Unknown] metformin 500 mg tablet,extended release 24hr See Rx Instructions PO QPM 01/02/22 [History Last Taken Unknown] ondansetron 4 mg disintegrating tablet 8 mg PO Q8H PRN nausea and vomiting #7 tabs 01/02/22 [Rx Last Taken Unknown] prednisone 10 mg tablet 10 mg PO DAILY #30 tabs 01/04/22 [Rx Last Taken Unknown] metaxalone 800 mg tablet (Skelaxin) 800 mg PO TID 7 days #21 tabs 01/07/22 [Rx Last Taken Unknown] oxycodone-acetaminophen 5 mg-325 mg tablet (Percocet) 1 tab PO Q6H PRN pain 3 days #10 tabs 01/07/22 [Rx Last Taken Unknown] Allergy/AdvReac Type Severity Reaction Status Date / Time terbutaline sulfate Allergy Other Verified 01/07/22 10:01 [From Brethine] metoclopramide HCl AdvReac Other Verified 01/07/22 10:01 [From Reglan] Family History Mother Diabetes CVA (cerebral vascular accident) Thyroid disorder Cancer lung Hypertension Father CAD (coronary artery disease) Hypertension Cancer lung Surgical History H/O colectomy H/O right knee surgery H/O thyroidectomy History of nasal surgery History of partial hysterectomy History of tonsillectomy and adenoidectomy History of tubal ligation [place] teeth extracted Social History household members: spouse Smoking Status: Former smoker alcohol intake: never substance use type: does not use caffeine: Yes Type: coffee Number of servings: 5 what type of physical activity do you participate in: none ROS ROS ED ROS Narrative Denies recent illness. Denies fever or chills. Review of Systems ROS Unobtainable: Denies due to encephalopathy Constitutional Constitutional ED: Denies chills or fever(s) Eyes Eyes: Denies blurry vision ENT ENT ED: Denies ear pain Cardiovascular Cardiovascular: Denies chest pain Respiratory/Chest Respiratory/Chest: Denies cough or dyspnea Gastrointestinal Gastrointestinal: Denies abdominal pain Genitourinary Genitourinary ED: Denies dysuria or hematuria Musculoskeletal Musculoskeletal: Denies back pain or myalgias Integumentary Denies abscess Neurologic Neurologic: Denies headache(s) Psychiatric Psychiatric: Denies anxiety Endocrine Endocrinology: Denies cold intolerance Hematologic/Lymphatic Hematologic/Lymphatic: Denies easy bleeding Allergic/Immunologic Allergic/Immunologic ED: Denies mouth swelling or tongue swelling EXAM Physical Exam Narrative Exam Narrative: Well-appearing 46-year-old female. Vital signs stable afebrile. Initial blood pressure elevated 169/114. Afebrile temperature 97.4. She does not look septic or toxic. H EENT exam unremarkable. Moist Riis membranes. Neck nontender. Lungs clear to auscultation. Heart regular rhythm rate about 80 no murmur. Chest wall nontender. Abdomen soft nontender. Back her right top of her shoulder and by her scapula and soft tissue there is tenderness consistent with myofascial strain and spasm. The right shoulder joint itself is not red, warm or swollen. There is no signs of septic joint. She has discomfort with range of motion of the shoulder and the back of her scapular region consistent with a myofascial strain and spasm. Right hand is neurovascular intact with 5/5 metal machine setter strength. Normal radial pulse. No bony deformity or tenderness. Otherwise exam unremarkable. Const Vital Signs: 01/07/22 10:01 Temperature 97.4 F L Temperature Source Temporal Pulse Rate 82 Respiratory Rate 18 Blood Pressure 169/114 H Blood Pressure Mean 132 Pulse Ox 95 Oxygen Delivery Method Room Air Positive well nourished and well developed; Negative for obese, cachectic, contractures or unkempt General Appearance ED: well developed and NAD; Negative for unkempt, cachectic, contractures, cyanotic or diaphoretic Nutritional Appearance: Negative for cachectic or obese HEENT Reports moist mucous membranes normocephalic and atraumatic; Negative for trauma or tenderness Eyes PERRL and EOMs intact bilaterally General Eye ED: Negative for other Neck full ROM and supple General: Negative for tenderness Lymph Lymphatic: Negative for other Chest Wall inspection of chest normal and palpation of chest normal Chest: Negative for other Resp normal respiratory effort and clear to auscultation bilaterally Effort and Inspection: Negative for pain with movement Auscultation: Negative for rales, rhonchi or wheezes Cardio regular rate, regular rhythm, S1 normal heart sound, S2 normal heart sound and no murmurs GI non-tender, non-distended and no masses Inspection: Negative for abdominal distention Auscultation: normoactive bowel sounds Palpation: soft; Negative for tender Back/Spine no CVA tenderness Back/Spine Narrative: FurtherTenderness over the soft tissue medial to the right scapula and right shoulder between the neck and the shoulder joint consistent with a myofascial strain and spasm. The right shoulder joint itself is unremarkable. Is not red, hot or swollen. General Back: Negative for CVA tenderness Cervical Spine: Negative for cervical spine tenderness Thoracic Spine / Upper Back: Negative for thoracic spinal tenderness Lumbar Spine / Lower Back: Negative for lumbar spinal tenderness or straight leg raise positive - left Extremity normal to inspection and full ROM General Extremety ED: Negative for edema or other findings General Extremity: Negative for edema or other findings Neuro oriented x3, CN's II-XII intact bilaterally, moves all extremities, no focal motor deficits and no sensory deficits noted Sensorium / Orientation: alert, oriented to person, oriented to place and oriented to time Sensory Exam: No sensory level loss detected Motor Exam: strength 5/5 throughout; Negative for general weakness or strength abnormal Psych mental status grossly normal Appearance: Negative for unkempt Attitude: No agitated Mood & Affect: Negative for depressed, anxious or tearful Skin General Skin Exam: Negative for petechiae Lesions: no lesions Rashes: no rashes Trauma: no lacerations or abrasions; Negative for abrasion or laceration MDM MDM MDM Narrative Medical decision making narrative: 46-year-old female complaining of atraumatic right shoulder pain. Her and her are requesting x-rays of to be obtained. She will be given Toradol for pain and Zofran for her nausea. She states she is nauseated from the pain. She has no fever and no signs of a septic joint. Exam and history are consistent with right shoulder strain and spasm of the muscle. She is already on a muscle relaxant at home. Repeat exam patient doing significantly from the Toradol. She will be given IV morphine. I did repeat her exam is unchanged this is definitely musculoskeletal in etiology. We went over x-ray results with her and her . Again there is no signs of any septic joint on exam. She will be written for a few Percocet from for pain. Motrin. Stop the steroids. Warm shower or hot bath. Massage and this should progressively improve. The muscle relaxant Skelaxin. Follow-up with her primary care physician. Radiography Diagnostic Testing: Right shoulder x-ray, 4 views, interpreted by myself and radiologist shows no acute abnormality. No fracture or dislocation. No significant chronic changes. Discharge Plan Triage Chief Complaint: Upper Extremity Injury ED Provider: Trever Freedman Dx/Rx/DC Orders Clinical Impression: Muscle strain of right shoulder, Muscle spasm Instructions: ED Muscle Spasm Prescriptions: New oxycodone-acetaminophen [Percocet] 5-325 mg tablet 1 tab PO Q6H PRN (Reason: pain) 3 Days Qty: 10 0RF metaxalone [Skelaxin] 800 mg tablet 800 mg PO TID 7 Days Qty: 21 0RF No Action CBD rUB 1 applic TOPICAL DAILY glimepiride 4 mg tablet 4 mg PO BID 90 Days Qty: 180 3RF (DME) FreeStyle Brie 14 Day [place] Misc See Rx Instructions .ROUTE .MEDSUPPLY Qty: 4 3RF Rx Instructions: As directed cyclobenzaprine 5 mg tablet 5 mg PO BID Qty: 180 0RF metformin 500 mg tablet extended release 24hr See Rx Instructions PO QPM Rx Instructions: Take 500mg in Morning and 1000mg at bedtime orally every evening; ondansetron 4 mg tablet,disintegrating 8 mg PO Q8H PRN (Reason: nausea and vomiting) Qty: 7 0RF prednisone 10 mg tablet 10 mg PO DAILY Qty: 30 0RF Rx Instructions: 4 tablets daily for 3 days, then 3 tablets daily for 3 days, then 2 tablets daily for 3 days, then 1 tablet daily for 3 days hydrochlorothiazide 25 mg tablet 25 mg PO DAILY Qty: 90 2RF losartan 100 mg tablet 100 mg PO DAILY Qty: 90 3RF (DME) FreeStyle Brie 14 Day Sensor Kit See Rx Instructions .ROUTE .MEDSUPPLY Qty: 4 4RF Rx Instructions: As directed Primary Care Provider: Kanwal Urena Referrals: Kanwal Urena MD [Primary Care Provider] - 1 Week if not improving Activity Restrictions/Additional Instructions: Stop the prednisone. Motrin 2-3 times a day. Hot shower, warm bath massage to the right posterior shoulder relax the muscle. The muscle relaxant Skelaxin 3 times a day for a week. Limited pain medication Percocet. Follow-up with your doctor if not improving. Disposition Disposition: Home, Self Care
--- NOTE | 2022-01-07 10:50 | RAD_ITS ---
STUDY: X-RAY - RIGHT SHOULDER REASON FOR EXAM: Female, 46 years old. atraumatic pain TECHNIQUE: 4 view(s) of the shoulder. COMPARISON: None. FINDINGS: Normal glenohumeral articulation. Normal acromioclavicular joint. Normal acromion. Normal humeral head and visualized proximal humerus. The soft tissue structures are unremarkable. Normal visualized pulmonary apex. RAD/Shoulder min 2 Views IMPRESSION: Normal x-ray examination of the shoulder. Electronically Signed: Zach Tavera MD at 11:03 EDT ,
[2022-01-07] MEDS: Ondansetron 4 MG/2 ML Vial IV (10:59)
[2022-01-07] MEDS: Ketorolac 30 MG/ML Syringe IV (11:00)
[2022-01-07] MEDS: morphine 8 MG/ML Syringe IV (11:46)
[2022-01-07 11:49] VITALS: PULSE 74; RESP 16; O2SAT 98
[2022-01-07 12:14] VITALS: BP 160/89
== END 2022-01-07 12:15 | disposition home or self-care (01) ==
PROVIDERS: Emergency Provider Emergency Medicine; PCP Internal Medicine; Visit Provider Emergency Medicine
DX: S46.911A Strain of unspecified muscle, fascia and tendon at shoulder and upper arm level, right arm, initial encounter (principal); E11.9 Type 2 diabetes mellitus without complications; I10 Essential (primary) hypertension; G47.30 Sleep apnea, unspecified; Z79.899 Other long term (current) drug therapy; Z79.84 Long term (current) use of oral hypoglycemic drugs; X58.XXXA Exposure to other specified factors, initial encounter; Z87.891 Personal history of nicotine dependence
CPT/HCPCS: 73030; 96372; 96374; 96375; 99283; A4216; J2405

== ENCOUNTER → 2022-04-02 | Outpatient (CLI) | payer OTHER, SELFPAY ==
[2022-04-02 09:39] LABS: Bacteria 0 SEEN /hpf (None Seen); Mucous, Urine 0 SEEN /hpf (<or=2+); Red Blood Cells-Urine 0 SEEN /hpf (0-5); White Blood Cells 0 SEEN /hpf (0-5)
[2022-04-02 12:08] LABS: Color, Urine Straw (Yellow); Glucose, Dipstick 1000 mg/dl (Normal); Ketone-Dipstick Negative (Negative); Leukocyte Esterase-Dipstick Negative /ul (Negative); Nitrite-Dipstick Negative (Negative); Occult Blood-Urine Negative /ul (Negative); Protein-Dipstick Negative (Negative); Urine Bilirubin Dipstick Negative (Negative); Urine Clarity Clear (Clear); Urine Urobilinogen Normal (Normal)
[2022-04-02 12:14] LABS: Squamous Epithelial Cells - UA 0-5 SEEN /hpf (5-10)
== END | disposition home or self-care (01) ==
LOC: LABSPEC 09:38
PROVIDERS: PCP Internal Medicine; Referring Provider Physician Assistant; Visit Provider Physician Assistant
DX: R35.0 Frequency of micturition (principal)
CPT/HCPCS: 81001

== ENCOUNTER → 2022-11-09 | Outpatient (CLI) | payer OTHER, SELFPAY ==
[2022-11-09 12:01] LABS: Absolute Lymphocyte Count 2.36 X10^3/uL (0.83-4.51); Absolute Neutrophil Count 3.7 X10^3/uL (2.0-7.7); Basophil# 0.04 X10^3/uL; Basophil% 0.6 % (0-1); Eosinophil# 0.18 X10^3/uL; Eosinophils% 2.6 % (0-5); Hematocrit 42.7 % (37-47); Hemoglobin 15.2 g/dL (12.0-15.0); Lymphocyte # 2.36 X10^3/ul (0.83-4.51); Lymphocyte % 34.4 % (19-41); Mean Corp Hgb Conc 35.6 g/dL (32-36); Mean Corpuscular Hgb 31.6 pg (27.0-32.0); Mean Corpuscular Volume 88.8 fL (81-99); Mean Platelet Vol. 10.8 fl (6.2-12.0); Monocyte# 0.57 X10^3/uL; Monocyte% 8.3 % (0-10); NRBC Flagged by Analyzer 0 % (0-5); Neutrophil # 3.67 X10^3/uL (2.7-7.7); Neutrophil % 53.5 % (47-70); Platelet Count 313 K/mm3 (150-450); RBC Distribution Width CV 11.6 % (11.6-14.6); RBC Distribution Width SD 37.2 fl (35.1-43.9); Red Blood Count 4.81 M/mm3 (4.2-5.4); White Blood Count 6.9 K/mm3 (4.4-11.0)
[2022-11-09 12:34] LABS: ALB/GLOB Ratio 1.1 RATIO (0.9-2.4); AST(SGOT) 11 U/L (15-37); Alanine Aminotransfer ALT/SGPT 18 U/L (13-56); Albumin, Serum 3.6 g/dL (3.2-5.0); Alkaline Phosphatase 82 U/L (45-117); Anion Gap 4 (5-15); BUN 11 mg/dL (7-18); BUN/Creat Ratio 14.6 RATIO (10-20); Calcium,Total 8.7 mg/dL (8.5-10.1); Chloride 105 mmol/L (98-107); Cholesterol 186 mg/dL (200); Creatinine, Serum 0.75 mg/dL (0.55-1.02); EST Glomerular Filtration Rate 87 mL/min (>60); Est Glom Filt Rate - Afr Amer 106 mL/min (>60); Globulin 3.2 g/dL (2.2-4.2); Glucose 193 mg/dL (74-106); High Density Lipoprotein 63 mg/dL; Potassium 3.6 mmol/L (3.5-5.1); Protein, Total 6.8 g/dL (6.4-8.2); Sodium Level 136 mmol/L (136-145); Triglycerides 94 mg/dL; Very Low Density Lipoprotein 19 mg/dL (5-40)
[2022-11-09 13:00] LABS: Creatinine, Urine (random) < 13.00 mg/dL (NO RANGE EST.); Microalbumin,Random Urine < 5.0 mg/L (NO RANGE EST.)
== END | disposition home or self-care (01) ==
LOC: BIMLAB 08:42
PROVIDERS: PCP Internal Medicine; Referring Provider Internal Medicine; Visit Provider Internal Medicine
DX: I10 Essential (primary) hypertension (principal); E11.9 Type 2 diabetes mellitus without complications
CPT/HCPCS: 36415; 80053; 80061; 82043; 82570; 85025

== ENCOUNTER → 2022-11-16 | Outpatient (CLI) | payer OTHER, SELFPAY ==
--- NOTE | 2022-11-16 16:44 | US_ITS ---
STUDY: SUPERFICIAL ULTRASOUND - REASON FOR EXAM: Female, 47 years old. Localised Skin Swelling/ palp TECHNIQUE: A superficial ultrasound was performed with real-time and static swanson-scale imaging. COMPARISON: FINDINGS: Ultrasound of the upper abdomen/lower breast area and near palpable abnormality demonstrates a subcutaneous nodule in the area of clinical concern. This measures 0.9 x 0.5 x 0.88 cm. This is smoothly marginated and hypoechoic. US/Ext Non Vasc Limited/Soft Tiss IMPRESSION: Bowel: Subcutaneous nodule. This could represent atypical lipoma or sebaceous cyst. Other etiology cannot be excluded. Correlation advised. Electronically Signed: Jan Boyd MD at 9:22 EDT ,
== END | disposition home or self-care (01) ==
LOC: US 16:43
PROVIDERS: PCP Internal Medicine; Referring Provider Internal Medicine; Visit Provider Internal Medicine
DX: R22.9 Localized swelling, mass and lump, unspecified (principal)
CPT/HCPCS: 76882

== ENCOUNTER → 2022-12-07 | Outpatient (CLI) | payer OTHER, SELFPAY ==
--- NOTE | 2022-12-07 07:47 | BI_ITS ---
MAMMOGRAPHY - BILATERAL SCREENING REASON FOR EXAM: Female, 47 years old. Routine annual screening examination. PERTINENT HISTORY: Aunt with breast cancer. TECHNIQUE: Digital bilateral breast valeria (3D mammographic acquisition) in the CC and MLO projections. 2-D mediolateral oblique (MLO) and craniocaudad (CC) views of both breasts were obtained. CAD: Full Field Digital Mammography with Computer Added Detection was performed. COMPARISON: Comparison is made with prior study dated February 20, 2021 and December 21, 2019. FINDINGS: Breast Composition: There are scattered areas of fibroglandular density. There are no dominant masses or suspicious calcifications. No other significant abnormalities are identified. There has been no significant change since the prior study. BI/SCRN MAMM (CAD)W/VALERIA BILAT IMPRESSION: Stable bilateral screening mammogram. Yearly follow-up mammogram recommended. (A) ASSESSMENT CATEGORY: BIRADS Category 1: Negative. A letter regarding these results will be sent to the patient by the facility within 30 days. Approximately 10% of breast cancers are not detected by mammography. A normal mammogram should not delay biopsy of a clinically suspicious abnormality. [id number] Electronically Signed: Andrew Phillips MD at 9:23 EDT ,
== END | disposition home or self-care (01) ==
LOC: OPBI 07:46
PROVIDERS: PCP Internal Medicine; Referring Provider Surgery; Visit Provider Surgery
DX: Z12.31 Encounter for screening mammogram for malignant neoplasm of breast (principal); Z80.3 Family history of malignant neoplasm of breast
CPT/HCPCS: 77063; 77067

== ENCOUNTER → 2023-06-10 | Outpatient (CLI) | payer OTHER, SELFPAY ==
[2023-06-10 11:04] LABS: Estradiol 18.8 pg/mL; T4 Free Direct 0.98 ng/dL (0.76-1.46)
[2023-06-10 11:50] LABS: Hemoglobin A1c 8.6 % (3.8-5.6)
[2023-06-11 04:07] LABS: Thyroid Peroxidase AB < 9 IU/mL (0-34)
== END | disposition home or self-care (01) ==
LOC: PAVLAB 09:54
PROVIDERS: PCP Internal Medicine; Referring Provider Nurse Practitioner Women's Health; Visit Provider Nurse Practitioner Women's Health
DX: N95.1 Menopausal and female climacteric states (principal); E11.9 Type 2 diabetes mellitus without complications; Z13.29 Encounter for screening for other suspected endocrine disorder
CPT/HCPCS: 36415; 82670; 83001; 83036; 84439; 84443; 86376

== ENCOUNTER 2023-07-17 13:38 | Emergency (ER) | payer OTHER, SELFPAY ==
[2023-07-17 13:39] VITALS: BP 134/88; PULSE 89; RESP 16; TEMP 36.6; O2SAT 98; BMI 25.7
--- NOTE | 2023-07-17 16:36 | EDS_ITS ---
HPI History of Present Illness Chief Complaint: Abscess Narrative Narrative: 48-year-old female past medical history of diabetes presents with abscess in her left inner groin that she has had for the last 3 to 4 days. She relates history that back on Saturday it started out small. She tried to pop the area. Since then it has been growing in size. She saw her primary care provider's nurse practitioner yesterday and she was put on doxycycline. She still has painful area in her left groin right in the crease that is painful. It hurts more when she walks or when her clothing touches it. She denies any fevers or chills but states she is nauseated and also having diarrhea. She presents because of the area in her left inner thigh. [facility] Medical History Abnormal EKG Abnormal stress test Acute diverticulosis Anxiety and depression Arthritis Back problem Bone fracture Cervical myofascial strain Cervical radiculopathy Chronic back pain Chronic pain syndrome Diverticulosis Essential hypertension Fibromyalgia Gastrointestinal problem GERD (gastroesophageal reflux disease) H/O emotional problems Hx of migraine headaches Hypocalcemia Insomnia Irritable bowel syndrome Kidney stones Localized skin mass, lump, or swelling Medical marijuana use Multiple thyroid nodules Numbness and tingling of right arm Numbness and tingling of right face Numbness and tingling of right leg Pneumonia Psoriatic arthropathy Rheumatoid arthritis Seasonal allergies Skin cysts, generalized Sleep apnea Thyroid disease Tobacco abuse Type 2 diabetes mellitus without complication Vitamin deficiency Home Medications CBD rUB 1 applic topical DAILY 01/14/19 [History Last Taken Unknown] flash glucose scanning reader (FreeStyle Brie 14 Day [place]) #4 ea 03/03/21 [Rx Last Taken Unknown] flash glucose sensor (FreeStyle Brie 14 Day Sensor kit) #4 ea 11/27/21 [Rx Last Taken Unknown] glimepiride 4 mg tablet 4 mg PO BID 3 months #180 tabs 11/09/22 [Rx Last Taken Unknown] amlodipine 10 mg tablet 10 mg PO DAILY #90 tabs 06/12/23 [Rx Last Taken Unknown] cyclobenzaprine 5 mg tablet 5 mg PO BID fibromyalgia #30 tabs 06/12/23 [Rx Last Taken Unknown] hydrochlorothiazide 25 mg tablet 25 mg PO DAILY #90 tabs 06/12/23 [Rx Last Taken Unknown] losartan 100 mg tablet 100 mg PO DAILY #90 tabs 06/12/23 [Rx Last Taken Unknown] metformin 500 mg tablet,extended release 24 hr 1,000 mg (2 x 500 mg) PO BID #180 tabs 06/12/23 [Rx Last Taken Unknown] mirtazapine 15 mg tablet 15 mg PO QHS PRN insomnia #30 tabs 06/12/23 [Rx Last Ta franklin Unknown] ondansetron 4 mg disintegrating tablet 8 mg (2 x 4 mg) PO Q8H PRN nausea and vomiting #30 tabs 06/12/23 [Rx Last Taken Unknown] doxycycline hyclate 100 mg capsule 100 mg PO BID 7 days #14 caps 07/16/23 [Rx Last Taken Unknown] fluconazole 150 mg tablet 150 mg PO ONCE #2 tabs 07/16/23 [Rx Last Taken Unknown] hydrocodone-acetaminophen 5-325mg 5mg-325mg 1 tab PO Q6H PRN PRN Pain 3 days #10 TABLETS 07/17/23 [Rx Last Taken Unknown] Allergy/AdvReac Type Severity Reaction Status Date / Time terbutaline sulfate Allergy Other Verified 07/17/23 13:39 [From Brethine] metoclopramide HCl AdvReac Other Verified 07/17/23 13:39 [From Reglan] Family History Mother Diabetes CVA (cerebral vascular accident) Thyroid disorder Cancer lung Hypertension Father CAD (coronary artery disease) Hypertension Cancer lung Surgical History H/O colectomy H/O right knee surgery H/O thyroidectomy History of nasal surgery History of partial hysterectomy History of tonsillectomy and adenoidectomy History of tubal ligation [place] teeth extracted Social History household members: spouse number of children: 2 current occupational status: employed current occupation: [employer] Smoking Status: Former smoker alcohol intake: never substance use type: marijuana caffeine: Yes Type: coffee Number of servings: 5 what type of physical activity do you participate in: none seatbelt use: always do you feel safe at home: Yes additional social history: - Emir Palacio- [place] ROS ROS ED ROS Narrative Constitutional: No fever, no chills. HEENT: No sore throat. No neck pain. No loss of vision. No rhinorrhea. Cardiovascular: No chest pain. No palpitations. No pedal edema. Respiratory: No cough, no shortness of breath. Abdominal: No abdominal pain. Positive nausea no vomiting. Positive diarrhea. Genitourinary: No dysuria. No hematuria. Musculoskeletal: No myalgias. No arthralgias. Neurologic: No headaches. No dizziness. No lightheadedness. Skin: No rash. No change in color. Area on left inner thigh that is growing in size and more painful. Psychiatric: No depression. No anxiety. EXAM Physical Exam Narrative Exam Narrative: Afebrile. Vital signs noted. Nontoxic-appearing. HEENT: Normocephalic. Atraumatic. PERRL, EOMI. Neck soft and supple. No point tenderness or step off. Cardiovascular: Regular rate and rhythm. No murmurs, rubs, or gallops appreciated. Respiratory: No tachypnea. Lungs clear to auscultation bilaterally. Gastrointestinal: Abdomen soft, nontender, with normoactive bowel sounds. No rebound or guarding. Neurological: Awake. Alert. Nonfocal, nonlateralizing. Skin: No rash. Normal color. No pallor. Chaperoned examination reveals abscess in the left groin fold that is fluctuant, approximately 1.5 cm and appears more superficial. No surrounding erythema. Musculoskeletal: No pedal edema. Full range of motion extremities. Const Vital Signs: 07/17/23 13:39 Temperature 97.8 F Temperature Source Temporal Pulse Rate 89 Respiratory Rate 16 Blood Pressure 134/88 H Blood Pressure Mean 103 Pulse Ox 98 Oxygen Delivery Method Room Air MDM MDM MDM Narrative Medical decision making narrative: Patient will be consented for incision and drainage. She was told of the risk of reaccumulation of fluid. See procedure note for detail. After incision and drainage, she will continue the doxycycline and follow-up with the surgeon as scheduled a week from tomorrow. I wrote her a prescription for 10 [place] tablets for analgesia. I feel she can be discharged safely home. Return instructions were reviewed. Disposition is discharged in stable condition. History & Record Review Discussion w/independent historian: Patient Additional record(s) reviewed:: Prior outpatient record ([facility] report) Procedures Other Procedures Procedure(s): Incision and drainage of left sebaceous cyst/abscess. Patient was prepped with power transformer inspector in room. Povidine iodine used as skin cleanser. 3 mL of lidocaine was injected locally for anesthesia. Cruciate in cision was made using a #11 blade. There was a moderate amount of purulent drainage, initially was more serous. I do not feel that the incision will take a packing after the loculation and irrigation. She was told of the risk of reaccumulation and early closure. She will apply warm compresses. Patient tolerated procedure well. Discharge Plan Triage Chief Complaint: Abscess ED Provider: Paul Wilde Dx/Rx/DC Orders Clinical Impression: Encounter for incision and drainage procedure, Infected sebaceous cyst, Abscess of groin, left Instructions: ED Abscess Incision And Drainage, Epidermoid Cyst Infect Antibiotics Prescriptions: New hydrocodone-acetaminophen 5-325 mg tablet 1 tab PO Q6H PRN PRN (Reason: Pain) 3 Days Qty: 10 0RF No Action CBD rUB 1 applic TOPICAL DAILY (DME) FreeStyle Brie 14 Day [place] Misc See Rx Instructions .ROUTE .MEDSUPPLY Qty: 4 3RF Rx Instructions: As directed glimepiride 4 mg tablet 4 mg PO BID 90 Days Qty: 180 3RF Hold Instructions: Order Changed amlodipine 10 mg tablet 10 mg PO DAILY Qty: 90 1RF hydrochlorothiazide 25 mg tablet 25 mg PO DAILY Qty: 90 1RF losartan 100 mg tablet 100 mg PO DAILY Qty: 90 1RF mirtazapine 15 mg tablet 15 mg PO QHS PRN (Reason: insomnia) Qty: 30 1RF ondansetron 4 mg tablet,disintegrating 8 mg PO Q8H PRN (Reason: nausea and vomiting) Qty: 30 0RF cyclobenzaprine 5 mg tablet 5 mg PO BID Qty: 30 1RF metformin 500 mg tablet extended release 24 hr 1,000 mg PO BID Qty: 180 1RF doxycycline hyclate 100 mg capsule 100 mg PO BID 7 Days Qty: 14 0RF fluconazole 150 mg tablet 150 mg PO ONCE Qty: 2 0RF Rx Instructions: as a single dose today, may repeat in 72 hours (DME) FreeStyle Brie 14 Day Sensor Kit See Rx Instructions .ROUTE .MEDSUPPLY Qty: 4 4RF Rx Instructions: As directed Primary Care Provider: Kanwal Urena Referrals: Kanwal Urena MD [Primary Care Provider] - Cinthia Lanier MD [Med Staff - Active Staff] - Keep Viri appointment Activity Restrictions/Additional Instructions: Finish the doxycycline you are placed on by your primary care provider. Pain medication as directed. Follow-up with surgery as already scheduled as there may be a reaccumulation of the sebaceous cyst. Disposition Disposition: Home, Self Care
[2023-07-17] MEDS: Lidocaine 1% (20 ml mdv) 20 ML Vial INFILT (17:27)
== END 2023-07-17 17:28 | disposition home or self-care (01) ==
PROVIDERS: Emergency Provider Emergency Medicine; PCP Internal Medicine; Visit Provider Emergency Medicine
DX: L02.214 Cutaneous abscess of groin (principal); E11.9 Type 2 diabetes mellitus without complications; L72.3 Sebaceous cyst; Z87.891 Personal history of nicotine dependence; I10 Essential (primary) hypertension; Z79.84 Long term (current) use of oral hypoglycemic drugs; Z79.899 Other long term (current) drug therapy; M79.7 Fibromyalgia; G47.00 Insomnia, unspecified; Z90.49 Acquired absence of other specified parts of digestive tract; Z90.710 Acquired absence of both cervix and uterus; Z98.51 Tubal ligation status
CPT/HCPCS: 10060; 99282

== ENCOUNTER → 2023-09-26 | Outpatient (CLI) | payer OTHER, SELFPAY ==
[2023-09-26 07:33] LABS: Absolute Lymphocyte Count 2.85 X10^3/uL (0.83-4.51); Absolute Neutrophil Count 3.4 X10^3/uL (2.0-7.7); Basophil# 0.07 X10^3/uL; Eosinophil# 0.24 X10^3/uL; Eosinophils% 3.3 % (0-5); Hematocrit 43.7 % (37-47); Lymphocyte # 2.85 X10^3/ul (0.83-4.51); Mean Corp Hgb Conc 34.3 g/dL (32-36); Mean Corpuscular Hgb 29.6 pg (27.0-32.0); Mean Corpuscular Volume 86.4 fL (81-99); Mean Platelet Vol. 9.7 fl (6.2-12.0); Monocyte# 0.73 X10^3/uL; NRBC Flagged by Analyzer 0 % (0-5); Neutrophil # 3.36 X10^3/uL (2.7-7.7); Platelet Count 299 K/mm3 (150-450); RBC Distribution Width CV 11.9 % (11.6-14.6); RBC Distribution Width SD 37.6 fl (35.1-43.9); Red Blood Count 5.06 M/mm3 (4.2-5.4); White Blood Count 7.3 K/mm3 (4.4-11.0)
[2023-09-26 08:18] LABS: Erythrocyte Sedimentation Rate 2 mm/hr (0-30)
[2023-09-26 08:36] LABS: ALB/GLOB Ratio 1.1 RATIO (0.9-2.4); AST(SGOT) 19 U/L (15-37); Alanine Aminotransfer ALT/SGPT 31 U/L (13-56); Albumin, Serum 3.6 g/dL (3.2-5.0); Alkaline Phosphatase 64 U/L (45-117); Anion Gap 6 (5-15); BUN 14 mg/dL (7-18); BUN/Creat Ratio 19.5 RATIO (10-20); CRP < 2.90 mg/L (0.0-3.0); Calcium,Total 9.1 mg/dL (8.5-10.1); Chloride 105 mmol/L (98-107); Cholesterol 229 mg/dL (200); Creatinine, Serum 0.72 mg/dL (0.55-1.02); EST Glomerular Filtration Rate 92 mL/min (>60); Est Glom Filt Rate - Afr Amer 111 mL/min (>60); Globulin 3.4 g/dL (2.2-4.2); Glucose 178 mg/dL (74-106); High Density Lipoprotein 80 mg/dL; Sodium Level 137 mmol/L (136-145); Triglycerides 111 mg/dL; Very Low Density Lipoprotein 22 mg/dL (5-40)
[2023-09-27 14:10] LABS: ANTINUCLEAR ANTIBODIES DIRECT Negative (Negative)
== END | disposition home or self-care (01) ==
LOC: LAB 06:42
PROVIDERS: PCP Internal Medicine; Referring Provider Physician Assistant; Visit Provider Physician Assistant
DX: M25.50 Pain in unspecified joint (principal); E11.69 Type 2 diabetes mellitus with other specified complication; I10 Essential (primary) hypertension
CPT/HCPCS: 36415; 80053; 80061; 85025; 85652; 86038; 86140; 86225; 86235

== ENCOUNTER → 2024-02-12 | Outpatient (CLI) | payer OTHER, SELFPAY ==
[2024-02-12 12:32] LABS: Anion Gap 7 (5-15); BUN 16 mg/dL (7-18); BUN/Creat Ratio 21.3 RATIO (10-20); Calcium,Total 8.8 mg/dL (8.5-10.1); Chloride 107 mmol/L (98-107); Creatinine, Serum 0.75 mg/dL (0.55-1.02); EST Glomerular Filtration Rate 87 mL/min (>60); Est Glom Filt Rate - Afr Amer 105 mL/min (>60); Glucose 193 mg/dL (74-106); Microalbumin,Random Urine 11.6 mg/L (NO RANGE EST.); Potassium 3.7 mmol/L (3.5-5.1); Sodium Level 140 mmol/L (136-145); T4 Free Direct 0.92 ng/dL (0.76-1.46); Thyroid Stim Hormone (TSH) 0.839 uIU/mL (0.358-3.740)
== END | disposition home or self-care (01) ==
LOC: BIMLAB 08:55
PROVIDERS: PCP Internal Medicine; Referring Provider Internal Medicine; Visit Provider Internal Medicine
DX: Z13.29 Encounter for screening for other suspected endocrine disorder (principal); E11.69 Type 2 diabetes mellitus with other specified complication
CPT/HCPCS: 36415; 80048; 82043; 82570; 84439; 84443

== ENCOUNTER → 2024-10-28 | Outpatient (CLI) | payer BC, SELFPAY ==
[2024-10-28 15:28] LABS: Hematocrit 41.2 % (37-47); Hemoglobin 14.5 g/dL (12.0-15.0); Immature Granulocytes Count 0.030 X10^3/uL (0.0-0.0); Mean Corp Hgb Conc 35.2 g/dL (32-36); Mean Corpuscular Volume 88.2 fL (81-99); Mean Platelet Vol. 9.6 fl (6.2-12.0); NRBC Flagged by Analyzer 0 % (0-5); Platelet Count 299 K/mm3 (150-450); RBC Distribution Width CV 12.6 % (11.6-14.6); RBC Distribution Width SD 40.6 fl (35.1-43.9); Red Blood Count 4.67 M/mm3 (4.2-5.4); White Blood Count 7.7 K/mm3 (4.4-11.0)
[2024-10-28 15:54] LABS: Microalbumin,Random Urine < 12.0 mg/L (<20 mg/L)
[2024-10-28 16:12] LABS: AST(SGOT) 21 U/L (<=31); Alanine Aminotransfer ALT/SGPT 15 U/L (<=34); Albumin, Serum 4.3 g/dL (3.5-5.0); Alkaline Phosphatase 74 U/L (35-104); Anion Gap 14 (5-15); BUN 14 mg/dL (4-19); BUN/Creat Ratio 18.3 RATIO (10-20); Calcium,Total 9.5 mg/dL (7.6-11.0); Carbon Dioxide 22.0 mmol/L (21.0-32.0); Chloride 101 mmol/L (98-108); Cholesterol 227 mg/dL (<=200); Globulin 2.6 g/dL (2.2-4.2); Glucose 130 mg/dL (70-99); Low Density Lipoprotein Calc. 120 mg/dL; Potassium 3.3 mmol/L (3.3-5.1); Triglycerides 128 mg/dL; Very Low Density Lipoprotein 26 mg/dL (5-40); cholesterol:hdl ratio screen 2.78
[2024-10-28 16:29] LABS: Vitamin B12 495 pg/mL (180-914); Vitamin D,25 Hydroxy 26.7 ng/mL (30-100)
== END | disposition home or self-care (01) ==
PROVIDERS: PCP Nurse Practitioner Family; Visit Provider Nurse Practitioner Family
DX: E11.9 Type 2 diabetes mellitus without complications (principal); I1A.0 Resistant hypertension
CPT/HCPCS: 36415; 80053; 80061; 82043; 82088; 82306; 82384; 82607; 84244; 84443; 85025

== ENCOUNTER → 2024-12-29 | Outpatient (CLI) | payer BC, SELFPAY ==
--- NOTE | 2024-12-29 16:45 | BI_ITS ---
EXAM: SCRN MAMM (CAD)W/VALERIA BILAT DATE: 12/29/2024 CLINICAL HISTORY: F, Age 49 y/o , BREAST CANCER SCREENING Aunt with breast cancer. TECHNIQUE: Procedure Code: [id number] Modality: MG Procedure: SCRN MAMM (CAD)W/VALERIA BILAT COMPARISON: Prior exam(s) dated December 07, 2022.. FINDINGS: TISSUE DENSITY: There are scattered areas of fibroglandular density. Bilateral Breast Mammographic Findings: No significant masses, calcifications or other abnormalities are identified. No suspicious masses, areas of developing architectural distortion, or suspicious calcifications. There has been no significant interval change. BI/SCRN MAMM (CAD)W/VALERIA BILAT IMPRESSION: Stable bilateral screening mammogram. OVERALL FINAL ASSESSMENT BI-RADS 1: NEGATIVE. RECOMMENDATION: Routine annual follow-up in 1 Year Additional Recommendation none A letter with findings and recommendations will be mailed to the patient. Reading Location: [place] [id number]
== END | disposition home or self-care (01) ==
LOC: OPBI 16:28
PROVIDERS: PCP Nurse Practitioner Family; Referring Provider Internal Medicine; Visit Provider Internal Medicine
DX: Z12.31 Encounter for screening mammogram for malignant neoplasm of breast (principal); Z80.3 Family history of malignant neoplasm of breast
CPT/HCPCS: 77063; 77067